=== PATIENT | male | born 1980 | race Caucasian/White ===

== ENCOUNTER 2018-09-11 04:46 | Inpatient (IN) | payer OTHER ==
[2018-09-11] VITALS (8 sets, daily range): BP systolic 107–146; BP diastolic 69–98
[~2018-09-11] VITALS: Ht 180.3 cm; Wt 58.5 kg
[~2018-09-11 04:46] MED LIST: ATIVAN1 MG PO; AUGMENTIN 500-1 EACH PO; COLACE100 MG PO; FENTANYL 1100 MCG/HR TP; FENTANYL PA25 MCG/HR TP; MORPHINE SULFAT15 M1 PO; MSL20MG/ML PO; OXYCODONE HCL30 MG PO; PENTASA500 MG PO; REGLAN 10 MG TA10 MG PO; ROXICODONE15 MG PO; ROXICODONE30 MG PO; TRAMADOL 50 MG50 MG PO; ZOFRAN ODT4 MG PO
[2018-09-11 05:07] LABS: URINE BILIRUBIN NEGATIVE (Negative); URINE BLOOD NEGATIVE (Negative); URINE CLARITY CLEAR; URINE COLOR YELLOW; URINE GLUCOSE-RANDOM* NEGATIVE (Negative); URINE KETONES 1+ (Negative); URINE LEUKOCYTES-REFLEX NEGATIVE (Negative); URINE NITRITE-REFLEX NEGATIVE (Negative); URINE PROTEIN (DIPSTICK) NEGATIVE (Negative); URINE UROBILINOGEN 0.2 E.U./dl (0.2-1.0)
[2018-09-11] MEDS ORDERED: HYOSCYAMINE0.125 M2 PO (05:10)
[2018-09-11] MEDS ORDERED: METHADOSE40 MG PO (05:12)
[2018-09-11 05:32] LABS: HEMATOCRIT 41.4 % (42.0-52.0); HEMOGLOBIN 13.9 gm/dL (14.0-18.0); MCH 27.5 pg (26.0-34.0); MCHC 33.7 g/dL (28.0-37.0); MCV 81.8 fL (80.0-100.0); RBC 5.06 mil/uL (4.50-6.00); RDW 14.3 % (10.5-14.5); WBC 8.8 thou/uL (4.0-11.0)
[2018-09-11 05:40] LABS: CALCIUM 9.3 mg/dL (8.5-10.1); CREATININE 1.3 mg/dL (0.7-1.3); POTASSIUM 3.4 mmol/L (3.5-5.1)
[2018-09-11 05:53] LABS: ALBUMIN 3.4 g/dL (3.4-5.0); TOTAL BILIRUBIN 0.4 mg/dL (<0.1-1.0)
[2018-09-12 03:20] VITALS: BP 128/74
[2018-09-12 06:42] LABS: ABSOLUTE NEUTROPHILS 13.2 thou/uL (1.4-8.2); BASOPHILS 0.1 % (0.0-2.0); HEMATOCRIT 32.8 % (42.0-52.0); LYMPHOCYTES 4.2 % (24.0-44.0); MCH 26.8 pg (26.0-34.0); MCHC 32.4 g/dL (28.0-37.0); MCV 82.6 fL (80.0-100.0); POLYS 89.7 % (36.0-66.0); RBC 3.97 mil/uL (4.50-6.00); RDW 14.5 % (10.5-14.5); WBC 14.7 thou/uL (4.0-11.0)
[2018-09-12 06:44] LABS: HEMOGLOBIN 10.6 gm/dL (14.0-18.0); PLATELET COUNT 279 thou/uL (150-400)
[2018-09-12 06:50] LABS: CALCIUM 8.2 mg/dL (8.5-10.1); POTASSIUM 3.9 mmol/L (3.5-5.1)
[2018-09-12 07:34] VITALS: BP 126/91
[2018-09-12 12:17] VITALS: BP 160/90
[2018-09-12 15:18] VITALS: BP 110/80
[2018-09-12 20:11] VITALS: BP 132/77
[2018-09-13 04:11] VITALS: BP 139/74
[2018-09-13 05:46] LABS: ABSOLUTE NEUTROPHILS 8.4 thou/uL (1.4-8.2); BASOPHILS 0.3 % (0.0-2.0); HEMATOCRIT 30.4 % (42.0-52.0); LYMPHOCYTES 5.5 % (24.0-44.0); MCH 27.3 pg (26.0-34.0); MCV 82.7 fL (80.0-100.0); MONOCYTES 5.5 % (1.0-8.0); PLATELET COUNT 242 thou/uL (150-400); POLYS 88.7 % (36.0-66.0); RBC 3.68 mil/uL (4.50-6.00); RDW 14.8 % (10.5-14.5); WBC 9.5 thou/uL (4.0-11.0)
[2018-09-13 06:02] LABS: CALCIUM 8.6 mg/dL (8.5-10.1); CREATININE 0.9 mg/dL (0.7-1.3); POTASSIUM 3.9 mmol/L (3.5-5.1)
[2018-09-13 11:57] VITALS: BP 115/79
[2018-09-13 15:59] VITALS: BP 113/77
[2018-09-13 19:05] VITALS: BP 110/68
[2018-09-14 00:34] VITALS: BP 117/72
[2018-09-14 04:35] VITALS: BP 104/62
[2018-09-14 05:26] LABS: ABSOLUTE NEUTROPHILS 7.7 thou/uL (1.4-8.2); BASOPHILS 0.1 % (0.0-2.0); EOSINOPHILS 0.1 % (0.0-3.0); HEMATOCRIT 26.6 % (42.0-52.0); HEMOGLOBIN 8.9 gm/dL (14.0-18.0); MCH 27.6 pg (26.0-34.0); MCHC 33.5 g/dL (28.0-37.0); MCV 82.6 fL (80.0-100.0); MONOCYTES 3.1 % (1.0-8.0); PLATELET COUNT 215 thou/uL (150-400); POLYS 94.7 % (36.0-66.0); RBC 3.22 mil/uL (4.50-6.00); RDW 14.5 % (10.5-14.5); WBC 8.1 thou/uL (4.0-11.0)
[2018-09-14 05:36] LABS: CALCIUM 8.3 mg/dL (8.5-10.1); POTASSIUM 3.7 mmol/L (3.5-5.1)
[2018-09-14 07:11] VITALS: BP 104/58
[2018-09-14 15:27] VITALS: BP 111/77
[2018-09-14 20:12] VITALS: BP 106/69
[2018-09-15 04:08] VITALS: BP 103/58
[2018-09-15] MEDS ORDERED: METRONIDAZOLE500 M4 PO (10:08)
[2018-09-15] MEDS ORDERED: HYDROCODON-ACE1 EAC7 PO (10:08)
[2018-09-15 10:23] VITALS: BP 103/58
--- NOTE | 2018-09-16 14:06 | PATH ---
[facility] [address] [place] [address] PATHOLOGY RPT PROCEDURE Name: GINOSMITA Room #: 459-P DIS IN M.R.#: [id number] Admission: 09/11/18 Date of : 80 Discharge: 09/15/18 Report #: [id number] Path Case #: [id number] LCA Accession Number: [id number] . 01 Material submitted: . ILEOCOLONIC RESECTION . 01 Clinical history: . Bowel obstruction . 02 Diagnosis: Small bowel and large intestine, ileocolonic resection: - Surface ulceration along with moderate acute inflammation and transmural lymphoid aggregates, compatible with Crohn's disease. - Fibrosis and adhesions along with marked congestion of the serosal surface. - Multiple anastomotic sites identified, status post resection. - Negative for dysplasia or malignancy. - Margins of resection viable and unremarkable. - 11.2 cm of omentum showing reactive changes. - 19 reactive lymph nodes (0/19) (IUV:jovanna; 09/15/2018) MBR/09/15/2018 . 02 Electronically signed: . Melissa Urena MD, Pathologist NPI- [id number] . 01 Gross description: . The specimen is received in formalin, labeled "Smita Christian, ileocolonic resection". Received is a serpiginous segment of small bowel measuring 82.4 cm in length and ranges in diameter from 2.4 to 5.5 cm, which is anastomosed to a segment of colon measuring 4.1 cm in length by 3.3 cm in diameter. Both margins are stapled closed. 2.5 cm from one margin, there is an area of dusky brown-black discoloration with sutures present measuring 4.7 cm in length by 1.4 cm in diameter. The surrounding serosal surface is inked black. The remainder of the serosa is pink-dueñas to dusky pink-green appearance. The attached mesenteric fat measures up to 3.3 cm in thickness. The attached pericolic fat measures 1.0 cm in thickness. The specimen is along the antimesenteric line to reveal dusky jonas-brown to pink-red mucosa within the small bowel. 50.1 cm from the proximal margin, the mucosa is pink-red and cobblestone in appearance. Within this area, there is an anastomotic line present. The mucosa distal to this anastomosis is pink-dueñas and slightly edematous in appearance with the cobblestone effect extending 4.4 cm distal to this anastomotic line. 4.1 cm from the distal margin, there is a second anastomotic line present. The colonic mucosa is light dueñas to pink-dueñas in appearance with normal [address] [address] PATHOLOGY RPT PROCEDURE Name: SMITA CHRISTIAN Room #: 459-P [facility] IN M.R.#: [id number] Admission: 09/11/18 Date of : 80 Discharge: 09/15/18 Report #: [id number] Path Case #: [id number] architectural folds. Sectioning through the attached mesenteric and pericolic fat reveals 17 readily identifiable lymph nodes ranging in size from 0.5 to 1.4 cm in maximum dimensions. . Also received within the specimen container is a segment of light dueñas mucosa with attached pale dueñas serosa, which has a suture present, measuring 3.7 x 1.5 x 0.6 cm, as well as a separately submitted segment of omentum measuring 11.2 x 3.8 x 1.5 cm in greatest dimensions. The specimen is submitted representatively as follows: . A1 proximal margin A2 distal margin A3 admitting representative sections from area of discoloration near proximal margin A4 admitting representative sections of small bowel mucosa proximal to anastomotic line #1 A5 admitting representative sections of anastomotic line #1 A6-A7 admitting representative sections of cobblestone-appearing mucosa surrounding the anastomotic line #1 A8 admitting representative sections of small bowel mucosa distal to anastomotic line #1 A9-A10 admitting representative sections of anastomotic line #2 A11 colonic mucosa A12 mesenteric margin A13-A16 intact lymph nodes A17-A18 one bisected lymph node in each cassette A19 admitting representative section of separately submitted segment of mucosa A20 admitting representative sections of omentum. (CAA; 09/12/2018) QAC/QAC . 02 Pathologist provided ICD-10: K50.90, K63.9 . 02 CPT . 178800, 062530 Specimen Comment: A courtesy copy of this report has been sent to Specimen Comment: [phone], , . Specimen Comment: Report sent to ,DR OLVERA / DR SOTO Specimen Comment: A duplicate report has been generated due to demographic updates. Performed at: [address] [place] [address] [place] [address] [address], [place] [id number] MD aJy Orlando MD Phone: [phone] Performed at: [address] [facility] [address], [place], [place] [id number] [facility] [address] [place] [address] PATHOLOGY RPT PROCEDURE Name: SMITA CHRISTIAN Room #: 459-P [facility] IN M.R.#: [id number] Admission: 09/11/18 Date of : 80 Discharge: 09/15/18 Report #: [id number] Path Case #: [id number] MD Melissa Urena MD Phone: [phone]
== END 2018-09-15 14:46 | disposition home or self-care (01) | DRG 329 ==
LOC: ER 04:46 → 4W 06:48 → EROBS 06:48 → 4W 09:35
PROVIDERS: Student in an Organized Health Care Education/Training Program; Surgery; ADMIT Hospitalist
DX: K56.609 Unspecified intestinal obstruction, unspecified as to partial versus complete obstruction (principal); E43 Unspecified severe protein-calorie malnutrition; G93.5 Compression of brain; K50.90 Crohn's disease, unspecified, without complications; F11.20 Opioid dependence, uncomplicated; Z68.1 Body mass index [BMI] 19.9 or less, adult; G89.4 Chronic pain syndrome; F32.9 Major depressive disorder, single episode, unspecified; F17.210 Nicotine dependence, cigarettes, uncomplicated; E87.6 Hypokalemia; Z91.041 Radiographic dye allergy status; Z91.19 Patient's noncompliance with other medical treatment and regimen
CPT/HCPCS: 10040; 50010; 50093; 50101; 50386; 50455; 50953; 51412; 51435; 51708; 51712; 56527; 56530; 56771; 57092; 62110; 62900; 70005

== ENCOUNTER 2018-09-21 18:47 | Inpatient (IN) | payer OTHER ==
[~2018-09-21] VITALS: Ht 180.3 cm; Wt 72.2 kg
--- NOTE | ~2018-09-21 | HC ---
[facility] [address] [place] [address] CONSULTATION Name: GINOSMITA CLEVELAND Room #: 200-I ADM IN .R.#: [id number] Admission: 09/21/18 ������������������ Attend Phys: Jay Cisse MD Discharge: ������������������ Date of : 80 Report #: [id number] THIS REPORT FOR: //name// CC: Jay Cisse [facility] physician/PCP REASON FOR CONSULTATION: Acute kidney injury. REASON FOR PRESENTATION: The patient was admitted on the 09/21/2018 with abdominal pain. HISTORY OF PRESENT ILLNESS: This is a 38-year-old with extensive abdominal history including Crohn's disease. He presented on 09/21/2018 with abdominal pain. He has history of untreated Crohn's disease. He is status post exploratory laparotomy with ileocolonic resection due to stricture causing high-grade small bowel obstructions on 08/14/2018. He had worsening of his abdominal pain and presented for further evaluation. CT on arrival revealed large amount of free air and fluid throughout the abdomen. Hence, the patient was taken to the OR on 09/22/2018 and he was found to have an ileocolonic anastomosis perforation due to ischemia. He had resection of the anastomotic area with lysis of adhesion, abdominal washout, end-ileostomy and STACY drain x 2. He has required numerous antibiotics and was recently on Keflex, switched to Zyvox. He had normal kidney function to start with all through during his hospital stay, other than a high creatinine of 1.6 on arrival; however, this improved down to ____. The patient is chronically malnourished. The patient continued to have normal kidney function up until 10/04/2018. From 10/04/2018 up until the 10/08/2018, the patient did not have any labs. On 10/08/2017, labs revealed significant worsening of his kidney function with a creatinine going up to 2.9. This was complicated by hyperkalemia with a potassium of 5.9 while the patient was on TPN. UA was completely unremarkable. He did have couple of low blood pressure readings. He was also on Keflex. No other nephrotoxins, specifically no nonsteroidal anti-inflammatory medications. No contrast studies in the last 24 hours; however, he did have contrasted CT on the 09/30/2018. On the 10/01/2018, he had yet another complication with a large gas containing fluid collection within the right upper quadrant, suspected of representing an anastomotic leak. He was taken to the CT ramírez and had a CT-guided placement of a 12-Faroese percutaneous drainage into that large gas containing anterior abdominal wall abscess. The patient had been making appropriate amount of urine. PAST MEDICAL HISTORY: 1. Crohn's disease. 2. Anastomotic breakdown due to ischemia. 3. Abdominal wall abscess. 4. Post STACY drain. 5. Ileostomy 6. Acute kidney injury. [address] [address] CONSULTATION Name: SMITA CHRISTIAN Room #: 200-I ADM IN M.R.#: [id number] Admission: 09/21/18 ������������������ Attend Phys: Jay Cisse MD Discharge: ������������������ Date of : 80 Report #: [id number] 7. Hyperkalemia. 8. Abdominal infection with Klebsiella, MRSA and enterococcus. 9. Status post bowel anastomosis dehiscence. 10. Status post colectomy and end ileostomy. 11. Peritonitis. 12. Small left pneumothorax. 13. Malnutrition. PAST SURGICAL HISTORY: As mentioned above. FAMILY HISTORY: No known chronic kidney disease. ALLERGIES: IODINE. ADDITIONAL PAST MEDICAL HISTORY: 1. 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 2. Appendectomy. 3. Lysis of adhesions. 4. Chronic pain. MEDICATIONS: 1. Methadone. 2. Hydrocodone. REVIEW OF SYSTEMS: GENERAL: Significant for weakness. CARDIOVASCULAR: No chest pain. PULMONARY: No cough or hemoptysis. ABDOMINAL AND GASTROINTESTINAL: As per the history of present illness. GENITOURINARY: No frequency, no urgency. PHYSICAL EXAMINATION: VITAL SIGNS: Blood pressure is 113/66, pulse rate is 89, temperature 36.6. HEAD AND NECK: No jugular venous distention. Emaciated. CHEST: Decreased air entry bilaterally. CARDIOVASCULAR: No rub. ABDOMEN: Soft, nontender with multiple STACY drains in the lower aspect, right upper quadrant drain, end ileostomy. LOWER EXTREMITIES: No edema. LABORATORY DATA: Reviewed. Sodium is 134, potassium is 5.7, BUN is 39, creatinine is down to 2.8, phosphorus is 5.7. ASSESSMENT, IMPRESSION AND PLAN: 1. Acute kidney injury. [address] [address] CONSULTATION Name: SMITA CHRISTIAN Room #: 200-I ADM IN ..#: [id number] Admission: 09/21/18 ������������������ Attend Phys: Jay Cisse MD Discharge: ������������������ Date of : 80 Report #: [id number] 2. Hyperkalemia. 3. Very complicated abdominal surgeries, see above. 4. Status post end ileostomy, lysis of adhesion, peritonitis, abdominal wall abscess drainage. 5. The source of the patient's acute kidney injury is not clear to me. Potential differential diagnosis includes dehydration, acute interstitial nephritis. I started him on IV fluid and this has resulted in significant improvement in his urine output. His potassium is marginal and I have discontinued all the potassium supplement from his TPN. His Keflex was discontinued, which seems to be appropriate. As for now, we will continue with the IV fluid and combination of his TPN with no potassium supplement. 6. Continue with the antibiotic. 7. Continue to avoid nephrotoxins and hypotension. 8. Watch electrolytes and treat any abnormal electrolyte values. 9. Continue other medical and surgical management per hospitalist and surgery team. 10. We will continue to follow along. ��������������������������������������������� ���������������������������������������� By: ��������������������������������������������� 0818 1823 Gloria Burdick MD /diana
[~2018-09-21 18:47] MED LIST changes: +HYDROCODON-ACE1 EAC7 PO; +HYOSCYAMINE0.125 M2 PO; +METHADOSE40 MG PO; +METRONIDAZOLE500 M4 PO
[2018-09-21 19:03] VITALS: BP 123/82
--- NOTE | 2018-09-21 19:15 | NUR ---
PATIENT C/O PAIN LEFT SHOULDER AREA. PHYSICIAN NOTIFIED.
--- NOTE | 2018-09-21 19:40 | NUR ---
SWELLING NOTED TO BILATERAL LOWER EXTREMITIES - 2+
[2018-09-21 19:41] LABS: ABSOLUTE NEUTROPHILS 6.5 thou/uL (1.4-8.2); BASOPHILS 0.1 % (0.0-2.0); HEMATOCRIT 27.6 % (42.0-52.0); HEMOGLOBIN 9.8 gm/dL (14.0-18.0); LYMPHOCYTES 3.3 % (24.0-44.0); MCH 27.7 pg (26.0-34.0); MCHC 35.3 g/dL (28.0-37.0); MCV 78.4 fL (80.0-100.0); MONOCYTES 5.4 % (1.0-8.0); PLATELET COUNT 603 thou/uL (150-400); POLYS 91.2 % (36.0-66.0); RBC 3.52 mil/uL (4.50-6.00); RDW 14.3 % (10.5-14.5); WBC 7.2 thou/uL (4.0-11.0)
[2018-09-21 19:48] LABS: CALCIUM 8.3 mg/dL (8.5-10.1); CREATININE 1.6 mg/dL (0.7-1.3); POTASSIUM 5.3 mmol/L (3.5-5.1)
[2018-09-21 19:54] LABS: ALBUMIN 1.8 g/dL (3.4-5.0); TOTAL BILIRUBIN 0.5 mg/dL (<0.1-1.0)
--- NOTE | 2018-09-21 20:15 | NUR ---
PATIENT TO CT SCAN
--- NOTE | 2018-09-21 21:49 | NUR ---
ER SPOKE WITH DR GARRETT AT 2746
--- NOTE | 2018-09-21 22:30 | NUR ---
SURGEON AT BEDSIDE TO DISCUSS EMERGENCY SURGERY
[2018-09-21 22:52] VITALS: BP 114/73
[2018-09-22] VITALS (28 sets, daily range): BP systolic 114–149; BP diastolic 69–87
[2018-09-22 02:11] LABS: URINE BILIRUBIN NEGATIVE (Negative); URINE BLOOD NEGATIVE (Negative); URINE CLARITY CLEAR; URINE COLOR YELLOW; URINE GLUCOSE-RANDOM* NEGATIVE (Negative); URINE KETONES NEGATIVE (Negative); URINE LEUKOCYTES-REFLEX NEGATIVE (Negative); URINE NITRITE-REFLEX NEGATIVE (Negative); URINE PROTEIN (DIPSTICK) NEGATIVE (Negative); URINE UROBILINOGEN 0.2 E.U./dl (0.2-1.0)
[2018-09-22 02:20] LABS: AMP/METHAMP Negative (Negative); BARBITURATES Negative (Negative); BENZODIAZEPINES Negative (Negative); COCAINE Negative (Negative); METHADONE POSITIVE (Negative); OPIATES POSITIVE (Negative); PCP Negative (Negative)
[2018-09-22 06:53] LABS: HEMATOCRIT 30.7 % (42.0-52.0); HEMOGLOBIN 10.4 gm/dL (14.0-18.0); MCH 27.1 pg (26.0-34.0); MCHC 33.9 g/dL (28.0-37.0); MCV 79.9 fL (80.0-100.0); RBC 3.84 mil/uL (4.50-6.00); RDW 14.4 % (10.5-14.5)
[2018-09-22 07:21] LABS: CREATININE 1.2 mg/dL (0.7-1.3); MAGNESIUM 2.2 mg/dL (1.8-2.4); POTASSIUM 5.4 mmol/L (3.5-5.1)
--- NOTE | 2018-09-22 07:42 | NUR ---
RECIEVED PT FROM PACU. PT AWAKE,C/O OF ABD PAIN, AND HAS CHRONIC PAIN THROUGHOUT BODY. UTILIZING INDUSTRIAL EDUCATION INSTRUCTOR ORDERED. PT SLEEPING-AWAKENS EASILY. VSS. ABD DRSG D/I. ILEOSTOMY WITH SMALL AMT OF SEROSANQ TRUDI. AND STACY COMPRESSED AND DRAINING-SEROSANQ. WELL. UO ADEQUATE. CONT TO MONITOR
--- NOTE | 2018-09-22 08:26 | EKG ---
[address] [place] [address] ELECTROCARDIOGRAM REPORT Name: GINOSMITA MCCARTHYITH Room #: 239-P ADM IN M.R.#: [id number] ������������������ Admission: 09/21/18 ������������������ Attend Phys: Jay Cisse MD Discharge: ������������������ Date of : 80 Report #: [id number] ����������������������������������������������������������������� [id number] THIS REPORT FOR: //name// [facility] ED Test Date: 2018-09-21 Test Time: 20:58:54 Pat Name: SMITA CHRISTIAN Department: Room: 239 Gender: M Ecommerce Merchandising Manager: mee : 1980 Requested By: Reinaldo Murrell Order Number: [id number] MD: Everett De La Paz Measurements Intervals [place] Rate: 102 P: 63 HI: 136 QRS: 36 QRSD: 88 T: 2 QT: 294 QTc: 383 Interpretive Statements Sinus tachycardia Nonspecific ST and T wave abnormality Compared to ECG 07/19/2015 17:00:22 nonspecific change in the ST and T-wave segments QT interval shortened Electronically Signed On 09-22-2018 8:26:13 SMALL BUSINESS SALES REPRESENTATIVE by Everett De La Paz [email or web address] ��������������������������������������������� <ELECTRONICALLY SIGNED> ���������������������������������������� By: Everett De La Paz MD, [facility] ��������������������������������������������� 09/22/18825 57 57 Everett De La Paz MD, [facility] /EPI
--- NOTE | 2018-09-22 09:46 | NUR ---
Nutrition: REC start TPN. pt severe malnourished. REC slow advancement in rate due to high refeeding syndrome risk. Standard TPN to reach goal rate of 75 mL/hr will meet needs.
--- NOTE | 2018-09-22 15:31 | NUR ---
WOUND CONSULT: PT. WAS SEEN TODAY BY DR. BAR AND MYSELF. PT. WOUND TO HIS MIDLINE IS HEALTHY IN APPERANCE AT THIS TIME. RECOMMENDATIONS: MAGGIE'S DAILY PT. AND STAFF NURSE WERE INSTRUCTED ON PLAN OF CARE.
--- NOTE | 2018-09-22 16:25 | NUR ---
CONSULTED TO PLACE A PICC FOR A PATIENT IN ICU NEEDING TPN. ORDER AND CONSENT NOTED. THE PROCEDURE WELL BENIFITS AND RISKS FOR THE PROCEDURE DISCUSSED AND THE PATIENT REQUESTED ATIVAN PRE PROCEDURE. THE RN OBTAINED AN ORDER FROM THE MD AND ATIVAN GIVEN PER ORDER. A #5F TRIPLE LUMEN POWER PICC WAS PLACED ON THE LEFT ARM PER HOSPITAL POLICY AFTER THE RIGHT ARM WAS ATTEMTED AND UNSUCCESSFUL. PRE- PROCEDURE TIMEOUT WAS COMPLETED PRIOR TO PLACEMENT. THE LINE WAS TRIMMED TO 50CM AND ADVANCED WITHOUT DIFFICULTY. A STAT CHEST XRAY WAS ORDERED FOR TIP LOCATION
--- NOTE | 2018-09-22 16:49 | NUR ---
ASSESSMENT-PT LIVES AT HOME WITH HIS MOM AND SISTER. PT JUST HAD SURGERY RECENTLY AND WAS DISCAHRGED HOME WITH MOM AND SISTER. PRIOR PT WAS NOT USING ANY DME AND HAD NO HH. MOM SAYS PT HAS HAD HH SERVICES IN THE PAST BUT MOM DOES NOT KNOW THE NAME OF THE AGENCY. THERAPIES WILL NEED TO BE ORDERED ONCE STABLE ENOUGH TO PARTICIPATE. WILL AWAIT REC. FOLLOWING TO ASSIST WITH DC PLANNING.
--- NOTE | 2018-09-22 19:32 | NUR ---
PATIENT ALERT AND ORIENTED X4, DROWSY AT TIMES. SINUS TACHYCARDIA ON GLOBAL UPSTREAM MARKETING MANAGER. ON ROOM AIR. RIGHT NARE NG TUBE TO LOW INTERMITTENT SUCTION. MCLEOD PATIENT AND DRAINING. RIGHT ILLEOSTOMY INTACT. MIDLINE DRESSING CHANGED PER WOUND CARE ORDERS. BLOOD SUGAR MONITORED. MORPHINE VOLLEYBALL COACH PARTIALLY CONTROLLING PAIN. PATIENT AND FAMILY UPDATED ON THE PLAN OF CARE. NO SIGNS OF ACUTE DISTRESS NOTED AT THIS TIME. WILL CONTINUE TO MONITOR.
[2018-09-23] VITALS (16 sets, daily range): BP systolic 112–146; BP diastolic 64–86
--- NOTE | 2018-09-23 04:45 | NUR ---
NO ACUTE CHANGES OVER THE NIGHT.PT CONTROLLING PAIN WITH PUBLIC TRANSPORTATION INSPECTOR, HAS SLEPT MOST OF THE NIGHT. VITALS WNL, TPN STARTED LAST NIGHT @30ML/HR. ADEQUATE URINE OUTPUT, NO DRAINAGE FROM RIGHT STACY, LEFT STACY DRAIN 80ML OUT. NG LO LIS, DRAINING SMALL AMOUNTS. PT WITH SEVERE GENERALISED WEAKNESS , UNABLE TO ASSIST WITH TURNS.
[2018-09-23 04:51] LABS: MAGNESIUM 2.4 mg/dL (1.8-2.4); PHOSPHORUS 2.7 mg/dL (2.5-4.9)
[2018-09-23 04:53] LABS: CALCIUM 7.9 mg/dL (8.5-10.1); CREATININE 0.9 mg/dL (0.7-1.3); POTASSIUM 3.9 mmol/L (3.5-5.1); TOTAL BILIRUBIN 0.4 mg/dL (<0.1-1.0)
[2018-09-23 05:07] LABS: ABSOLUTE NEUTROPHILS 4.3 thou/uL (1.4-8.2); EOSINOPHILS 0.1 % (0.0-3.0); HEMATOCRIT 23.2 % (42.0-52.0); LYMPHOCYTES 5.7 % (24.0-44.0); MCH 27.1 pg (26.0-34.0); MCV 79.8 fL (80.0-100.0); MONOCYTES 11.4 % (1.0-8.0); POLYS 82.8 % (36.0-66.0); RBC 2.91 mil/uL (4.50-6.00); RDW 14.6 % (10.5-14.5); WBC 5.1 thou/uL (4.0-11.0)
[2018-09-23 05:08] LABS: HEMOGLOBIN 7.9 gm/dL (14.0-18.0); PLATELET COUNT 543 thou/uL (150-400)
[2018-09-23 05:47] LABS: ALBUMIN 1.3 g/dL (3.4-5.0)
--- NOTE | 2018-09-23 11:41 | NUR ---
ASSESSMENTS DOCUMENTED. VSS. PT HAS CCT TX ORDERS. A/OX4. CHRONIC PAIN - TABULATING SUPERVISOR PUMP INFUSING. PRN ATIVAN GIVEN FOR ANXIETY. PT VERY SENSITIVE TO MOVEMENT, DOES NOT LIKE TO BE ROLLED OR REPOSITIONED MUCH. NG TO MONIQUE. MCLEOD PATENT. IV FLUIDS AND TPN INFUSING. SEEN BY SURGEON, NO CHANGES TO PLAN OF CARE FOR NOW. REMAINS NPO. REPORT GIVEN TO SUSHMA HANCOCK.
--- NOTE | 2018-09-23 11:44 | HC ---
[facility] [address] [place] [place] [address] CONSULTATION Name: SMITA CHRISTIAN Room #: 239-P [facility] IN M.R.#: [id number] Admission: 09/21/18 ������������������ Attend Phys: Jay Cisse MD Discharge: ������������������ Date of : 80 Report #: [id number] THIS REPORT FOR: //name// CC: Jay Cisse [facility] physician/PCP DATE OF SERVICE: 09/22/2018 CHIEF COMPLAINT: Surgical wound abdominal wall. HISTORY OF PRESENT ILLNESS: This is a 38-year-old male patient with a history of Crohn's disease that has been mostly untreated. He has had this diagnosis since around 2005. He is status post recent exploratory laparotomy with ileocolonic resection due to a stricture causing a high-grade small-bowel obstruction at a previous anastomosis. The patient has had increasing abdominal discomfort and was admitted. He was noted to have abdominal peritonitis with free air and fluid noted on CT. He underwent exploratory laparotomy with ileocolonic anastomosis resection, lysis of adhesions, abdominal washout, end ileostomy and STACY drain placement x 2. He has an open surgical abdominal incision line. I have been asked to see him with regard to wound care. ALLERGIES: THE PATIENT'S ALLERGIES ARE TO IODINE. MEDICATIONS: His current medications include enoxaparin, TPN, magnesium sulfate, potassium chloride, lorazepam, pantoprazole, diphenhydramine, metoclopramide, morphine, Zosyn and fentanyl. FAMILY HISTORY: Negative for known autoimmune disease. SOCIAL HISTORY: The patient smokes half pack of cigarettes daily. Denies alcohol use. Denies drug use. PAST MEDICAL HISTORY: The patient has a Chiari malformation, abdominal surgery for abscesses in 2002, small bowel resection in 2005 and chronic pain with narcotic use. REVIEW OF SYSTEMS: CONSTITUTIONAL: The patient denies fever or chills. He has had significant weight loss over the last several weeks. ENT: The patient denies earache, nasal drainage or sore throat. Has an NG tube. EYES: The patient denies visual changes, redness or drainage. CARDIOVASCULAR: The patient denies chest pain, palpitation or diaphoresis. PULMONARY: The patient denies cough or shortness of breath. GASTROINTESTINAL: The patient does complain of generalized abdominal discomfort with surgical wound. [facility] [address] [place] [address] CONSULTATION Name: SMITA CHRISTIAN Room #: 239-P [facility] IN ..#: [id number] Admission: 09/21/18 ������������������ Attend Phys: Jay Cisse MD Discharge: ������������������ Date of : 80 Report #: [id number] ORTHOPEDIC: The patient denies pain or swelling in the extremities. Other systems in a 14-point review of systems are negative. PHYSICAL EXAMINATION: VITAL SIGNS: At this time include temperature 98.4, pulse 105, respiratory rate 13 and blood pressure 120/69. GENERAL: This is a chronically ill-appearing male patient, who appears cachectic and in moderate discomfort. HEENT: Head normocephalic. Nose and throat are clear. NECK: Supple. LUNGS: Clear. HEART: Regular. ABDOMEN: Soft. Bowel sounds are present. He is emaciated. His abdomen is thin with very little subcutaneous fat. There is a longitudinal surgical incision. The fascia is intact. The superficial layers are open. It is relatively clean with granulation tissue. STACY drains are noted, without evidence of infection. Ileostomy appears to be pink with liquid output. EXTREMITIES: Without clubbing or cyanosis. NEUROLOGIC: The patient is alert, oriented and appropriate. LABORATORY DATA: Includes white blood cell count of 11,000, hemoglobin of 10.4, hematocrit of 30.7 and platelet count is 733,000. Sodium 128, potassium 5.4, chloride 94, CO2 of 25, BUN 36, creatinine 1.2, glucose of 71 and calcium is 8.0. Magnesium is 2.2. Albumin is markedly low at 1.3. Total protein is 4.0. CLINICAL IMPRESSION: 1. Surgical wound in the abdominal wall. 2. Untreated Crohn's disease with recent ileocolonic resection and subsequent peritonitis. 3. Severe protein-calorie malnutrition. RECOMMENDATIONS: At this point in time, we will use the Dakin's moist gauze dressing to the abdominal wall. We will consider a wound VAC to the abdominal incision line. He will need aggressive nutritional support. We will need additional suppression of his Crohn's disease once he is appropriately recovered from his surgical interventions. All findings have been discussed with the patient and family at the bedside. I appreciate being asked to see him in consultation. ��������������������������������������������� <ELECTRONICALLY SIGNED> ���������������������������������������� By: Juan R Turner MD ��������������������������������������������� 09/23/18 1144 [id number] Juan R Turner MD /nt
[2018-09-23 11:45] LABS: CALCIUM 7.6 mg/dL (8.5-10.1); CREATININE 0.7 mg/dL (0.7-1.3); MAGNESIUM 2.1 mg/dL (1.8-2.4); PHOSPHORUS 2.1 mg/dL (2.5-4.9); POTASSIUM 3.7 mmol/L (3.5-5.1)
--- NOTE | 2018-09-23 13:15 | NUR ---
PT RECEIVED FROM ICU TO ROOM 200..ORIENTED TO ROOM..
--- NOTE | 2018-09-23 13:28 | NUR ---
WOUND FOLLOW UP: PT. WAS SEEN TODAY BY DR. BAR AND MYSELF. PT. SURGICAL INCSION IS CLINCIALLY BETTER TODAY THAN YESTERDAY. RECOMMENDATIONS: CONTINUE WITH CURRENT PLAN OF CARE. PT. AND STAFF NURSE WERE INSTRUCTED ON PLAN OF CARE.
--- NOTE | 2018-09-23 13:29 | NUR ---
OSTOMY CONSULT: PT. SURGICAL OSTOMY APPLIANCE IS STILL INTACK AND WORKING WELL. STOMA IS ABLE TO BE VISULIZED. IT IS STILL SWOLLEN. COLOR IS BEEFY RED. OUT PUT IS SILL BLOOD MIXED AT THIS TIME. WILL CHANGE POUCH AND WAFFER LATER THIS WEEK.
--- NOTE | 2018-09-23 18:30 | NUR ---
PT HAS BEEN VERY GROGGY..PATIENTS MOTHER REQUESTED ATIVAN BE DECREASED SO HE CAN PARTICIPATE WITH PT/OT...VSS..PATIENT IS VERY SENSITIVE TO TOUCH, HE HOLLERS OUT IF ANY PART OF SKIN IS TOUCHED LIGHTLY...DENIES NAUSEA..NG TO LIS WITH MARCIAL BRUSH...REFUSED TO WORK WITH NATALIE PT...NOT PROGRESSING TOWARDS D/C GOALS YET...ATTEMPTED IS AND HE REFUSED TO HOLD IS..HE COULD NOT OBTAIN ANY READING ON IS. ASKED RT TO WORK WITH PATIENT LATER IN [place]...
[2018-09-24 00:40] VITALS: BP 140/76
--- NOTE | 2018-09-24 03:05 | NUR ---
ASSUMED CARE OF PATIENT AT 1900. VSS, AFEBRILE. CAPNEA MONITOR ORDERED TO MONITOR MORE CLOSELY. PATIENT WILL WAKE UP AND ANSWER QUESTIONS, BUT IS SLOW TO DO SO AT TIMES. EDUCATION GIVEN THAT IF HE IS TOO SEDATED, PAIN PUMP WILL HAVE TO BE ADJUSTED AGAIN. USING SIGNIFICANTLY LESS MORPHINE, PUSHING THE BUTTON LESS OFTEN WELL. STACY DRAINS FUNCTIONING WELL. PROGRESSING SLOWLY TOWARDS POC GOALS.
[2018-09-24 04:15] VITALS: BP 133/79
[2018-09-24 05:25] LABS: ABSOLUTE NEUTROPHILS 5.1 thou/uL (1.4-8.2); EOSINOPHILS 0.5 % (0.0-3.0); HEMOGLOBIN 7.4 gm/dL (14.0-18.0); LYMPHOCYTES 5.6 % (24.0-44.0); MCH 26.9 pg (26.0-34.0); MCHC 33.6 g/dL (28.0-37.0); MCV 80.2 fL (80.0-100.0); MONOCYTES 11.8 % (1.0-8.0); PLATELET COUNT 518 thou/uL (150-400); POLYS 82.1 % (36.0-66.0); RBC 2.74 mil/uL (4.50-6.00); RDW 14.5 % (10.5-14.5); WBC 6.3 thou/uL (4.0-11.0)
[2018-09-24 05:41] LABS: CALCIUM 7.4 mg/dL (8.5-10.1); CREATININE 0.5 mg/dL (0.7-1.3); MAGNESIUM 1.8 mg/dL (1.8-2.4); PHOSPHORUS 2.1 mg/dL (2.5-4.9); POTASSIUM 3.4 mmol/L (3.5-5.1)
[2018-09-24 07:43] VITALS: BP 172/77
[2018-09-24 09:35] VITALS: BP 123/67
[2018-09-24 10:02] LABS: MAGNESIUM 2.2 mg/dL (1.8-2.4); POTASSIUM 3.6 mmol/L (3.5-5.1)
[2018-09-24 11:45] VITALS: BP 127/63
--- NOTE | 2018-09-24 17:51 | NUR ---
ASSESSMENT DOCUMENTED. PT VERY DROWSY AT THE BEGINING OF THE SHIFT. DIRECTOR CORPORATE PUMP D/C. VSS. RECEIVED PRN PAIN MED AND ANXIETY MED WITH PARTIAL RELIEF. UP IN THE CHAIR THIS SHIFT. MCLEOD D/C. VOIDS OK. DRESSING CHANGE DONE ON ABD INCISION. TPN INFUSING @ 30 ML/HR. CHECKED FREQUENTLY AND NEEDS MET. WILL CONTINUE TO MONITOR.
[2018-09-24 20:07] VITALS: BP 118/64
[2018-09-25] VITALS (7 sets, daily range): BP systolic 106–144; BP diastolic 56–75
[2018-09-25 06:14] LABS: HEMATOCRIT 21.1 % (42.0-52.0); HEMOGLOBIN 7.6 gm/dL (14.0-18.0); MCH 28.7 pg (26.0-34.0); MCHC 35.9 g/dL (28.0-37.0); PLATELET COUNT 543 thou/uL (150-400); RBC 2.64 mil/uL (4.50-6.00); RDW 14.3 % (10.5-14.5); WBC 5.2 thou/uL (4.0-11.0)
[2018-09-25 06:19] LABS: CALCIUM 7.2 mg/dL (8.5-10.1); CREATININE 0.5 mg/dL (0.7-1.3); MAGNESIUM 1.8 mg/dL (1.8-2.4); PHOSPHORUS 2.2 mg/dL (2.5-4.9); POTASSIUM 3.2 mmol/L (3.5-5.1)
[2018-09-25 06:38] LABS: ABSOLUTE NEUTROPHILS 4.4 thou/uL (1.4-8.2)
[2018-09-25 06:40] LABS: POLYCHROMASIA 1+
--- NOTE | 2018-09-25 07:07 | NUR ---
ASSESSMENT DOCUMENTED.PT RESTING AT THIS TIME IN NO ACUTE DISTRESS.MEDICATED WITH PAIN MEDS THROUGHOUT THE NOC Q4H D/T ABD INCISIONS PAIN W/PARTIAL RELIEF.STACY DRAINS X2 IN PLACE,WITH SEROSANG DRAINAGE,SEE I&O FOR TOTAL OUTPUTS.NG TUBE TO LIS,W/BILIOUS DRAINAGE,ILEOSTOMY BAG IN PLACE,MINIMAL OUTPUT NOTED.TPN RUNNING AT 40CC/HR.IVF FLUIDS RUNNING AT 125CC/HR.DRESSING INTACT TO MID ABD INCISIONS.ABT INFUSED PER ORDERS.POC IS TO CONT WITH CURRENT TX.WILL CONT TO MONITOR.
--- NOTE | 2018-09-25 12:07 | PATH ---
[facility] [address] [place] [address] PATHOLOGY RPT PROCEDURE Name: GINOSMITA MEGHA Room #: 200-I ADM IN M.R.#: [id number] ������������������ Admission: 09/21/18 ������������������ Date of : 80 Discharge: Report #: [id number] Path Case #: [id number] LCA Accession Number: [id number] . 01 Material submitted: . ILEOCOLIC RESECTION . 01 Clinical history: . Intra-abdominal free air, hyponatremia, hypokalemia . 02 Diagnosis: Small bowel and large intestinal mucosa, ileocolic resection: - Surface ulceration along with perforation, history of Crohn's disease. - Extensive serositis along with reparative changes including foreign body-type giant cell reaction throughout the specimen. - Margins showing viable mucosa. . (IUV:mml; 09/23/2018) QLM/09/23/2018 . 02 Comment: Synaptophysin, Chromogranin, and CD68 immunohistochemical stains are performed on block A4. CD68 is reactive within the macrophages consistent with the diagnosis rendered. The non-reactive immunohistochemical stains, synaptophysin and chromogranin argue against a neoplastic process. . (IUV:mml; 09/23/2018) . 02 Electronically signed: . Melissa Urena MD, Pathologist NPI- [id number] . 01 Gross description: . The specimen is received in formalin, labeled "Smita Betancourt, ileocolic resection". Received is an unoriented segment of small bowel measuring 7.5 cm in length by 3.2 cm in diameter. Both margins are stapled closed. The serosal surface is dusky pink-jonas in appearance with overlying exudate. The attached mesenteric fat measures 0.9 cm in thickness. Immediately adjacent to one margin, there is a large circular defect, several yahaira embedded on the periphery of the defect, measuring 2.8 x 2.4 cm. The specimen is opened along the antimesenteric line to reveal pink-dueñas mucosa with minimal architectural folds. No distinct nodules or lesions are noted grossly. The specimen is submitted representatively as follows: . A1 margin closest to defect A2 opposite margin [address] [address] PATHOLOGY RPT PROCEDURE Name: GINOSMITA Room #: 200-I ADM IN M.R.#: [id number] ������������������ Admission: 09/21/18 ������������������ Date of : 80 Discharge: Report #: [id number] Path Case #: [id number] A3-A4 risk control field representative sections through circular defect A5 uninvolved mucosa. (CAA; 09/22/2018) QAC/QAC . 02 Pathologist provided ICD-10: K63.1, K63.3, K65.8 . 02 CPT . 186980, [id number], [id number] Specimen Comment: A courtesy copy of this report has been sent to Specimen Comment: [phone], , . Specimen Comment: Report sent to ,DR BAUER / DR GARRETT Specimen Comment: A duplicate report has been generated due to demographic updates. Performed at: [address] [facility], [place] [id number] MD Jay Orlando MD Phone: [phone] Performed at: [address] [facility] [id number] MD Melissa Urena MD Phone: [phone]
--- NOTE | 2018-09-25 12:35 | NUR ---
WOUND FOLLOW UP: PT. WAS SEEN TODAY BY DR. BARBER AND MYSELF. PT. MIDLINE INCSION IS CLINICALLY BETTER. PT. IS STILL HAVEING PAIN BUT, IS MORE COMFORTABLE THAN PRIOR. RECOMMENDATIONS: CONTINUE WITH CURRENT PLAN OF CARE. PT. AND STAFF NURSE WERE INSTRUCTED ON PLAN OF CARE.
[2018-09-25 16:27] LABS: MAGNESIUM 2.5 mg/dL (1.8-2.4); POTASSIUM 3.8 mmol/L (3.5-5.1)
--- NOTE | 2018-09-25 18:17 | NUR ---
ASSESSMENT DOCUMENTED. VSS. UP IN THE CHAIR THIS AM. PARTICIPATED IN PT/OT. RECEIVED PRN PAIN AND ANXIETY MED WITH PARTIAL RELIEF. MIDLINE INCISION C/D/I. TWO STACY DRAIN INTACT AND PATENT. SEEN BY DR. KURTZ. ORDERS GIVEN TO D/C NG TUBE AND START ON CLEAR LIQUIDS. TOLERATED CLEAR LIQUID WELL. TPN INFUSING @ 40 ML/HR. FAMILY UPDATED ON PT,S PROGRESS. PT PROGRESSING SLOWLY TOWARD DISCHARGE GOAL. WILL CONTINUE TO MONITOR.
[2018-09-26 03:57] VITALS: BP 108/69
--- NOTE | 2018-09-26 04:02 | NUR ---
ASSESSMENT DOCUMENTED.PT SLEEPING AT THIS TIME.S/P ABD SURGERY.PAIN MEDS GIVEN PER ORDERS.STACY DRAINS X2,ILEOSTOMY BAG INTACT.DRESSING CHANGED TO MID ABD INCISIONS D/T BEING SOAKED W/DRAINAGE.PT TOLERATED THE PROCEDURE.REMAINS ON TPN AT 55CC/HR.IVF INFUSING.ON ABT THERAPY,TOLERATING.REPOSTIONED IN BED.VOIDING VIA URINAL.POSITIVE BOWELS SOUNDS IN ALL 4 QUADS.VSS.NO CONCERNS VOICED AT THIS TIME.
[2018-09-26 06:01] LABS: HEMATOCRIT 20.3 % (42.0-52.0); MCH 27.5 pg (26.0-34.0); MCHC 34.4 g/dL (28.0-37.0); MCV 79.9 fL (80.0-100.0); PLATELET COUNT 502 thou/uL (150-400); RBC 2.54 mil/uL (4.50-6.00); RDW 14.8 % (10.5-14.5); WBC 5.6 thou/uL (4.0-11.0)
[2018-09-26 06:17] LABS: ALBUMIN 0.9 g/dL (3.4-5.0); CALCIUM 7.1 mg/dL (8.5-10.1); CREATININE 0.5 mg/dL (0.7-1.3); MAGNESIUM 1.8 mg/dL (1.8-2.4); PHOSPHORUS 2.5 mg/dL (2.5-4.9); POTASSIUM 3.3 mmol/L (3.5-5.1); TOTAL BILIRUBIN 0.4 mg/dL (<0.1-1.0); TOTAL PROTEIN 3.7 g/dL (6.4-8.2)
[2018-09-26 06:39] LABS: ABSOLUTE NEUTROPHILS 4.5 thou/uL (1.4-8.2)
[2018-09-26 06:41] LABS: MICROCYTES 1+; PLATELET ESTIMATE INCREASED; POLYCHROMASIA 1+
[2018-09-26 07:18] VITALS: BP 106/64
[2018-09-26 12:15] VITALS: BP 109/65
--- NOTE | 2018-09-26 14:19 | NUR ---
Case discussed with the care team. LTAC may be a better option for the pt than SNF due to his complex medical needs as well as therapy. Discussed with the pt's mother at bedside. Pt was sleeping soundly. Mom is familiar and open to discussion but wants to see how the next few days go. She feels he may do better at home with home health and/or infusion if needed. They have family members available 24/ to care for him and she is concerned about his mental health as well. Support provided. LTAC referrals initiated for feedback on beds and qualifying criteria. Mom agreeable to above and may try to tour this weekend. She believes her was at [facility] prior to his passing in 2011. Will follow.
--- NOTE | 2018-09-26 15:12 | NUR ---
OSTOMY FOLLOW UP: PT. OSTOMY APPLIANCE WAS CHANGED TODAY BY STAFF NURSE. APPLIANCE IS IN GOOD WORKING ORDER AND PT. HAS NO COMPLAINTS AT THIS TIME.
--- NOTE | 2018-09-26 15:23 | NUR ---
ASSUMED PATIENT CARE THIS AM. PATIENT LYING IN BED, A&O. ROOM AIR. PATIENT UP TO CHAIR THIS AFTERNOON WITH PT. THIS RN CHANGED MIDLINE DRESSING AND REPLACED OSTOMY DRESSING. PATIENT HAS A LOT OF DRAINAGE FROM ILEOSTOMY, THIS RN HOOKED PATIENT UP TO DRAINAGE BAG AT BEDSIDE TO ASSIST AND DECREASE RISK OF OSTOMY BAG BUSTING OPEN AGAIN. PAIN AND ANXIETY MANAGED WITH IV MEDICATIONS. PATIENT TOLERATING CLEAR LIQUIDS AND FULL LIQUIDS AT THIS TIME. MOTHER AT BEDSIDE. FALL RISK. PATIENT VOIDING PER URINAL. PATIENT ABLE TO USE CALL LIGHT APPROPRIATLY. WILL CONTINUE TO MONITOR.
[2018-09-26 15:40] VITALS: BP 106/68
--- NOTE | 2018-09-26 16:48 | NUR ---
WOUND FOLLOW UP: PT. WAS SEEN TODAY BY DR. BAR AND MYSELF. PT. WOUND IS CLINICALLY BETTER WITH EACH VISIT. RECOMMENDATIONS: CONTINUE WITH CURRENT PLAN OF CARE. PT. AND STAFF NURSE WERE INSTRUCTED ON PLAN OF CARE.
[2018-09-26 19:12] VITALS: BP 110/64
[2018-09-27 04:57] LABS: MCH 27.8 pg (26.0-34.0); MCHC 34.9 g/dL (28.0-37.0); MCV 79.7 fL (80.0-100.0); PLATELET COUNT 526 thou/uL (150-400); RBC 2.51 mil/uL (4.50-6.00); RDW 14.9 % (10.5-14.5); WBC 5.3 thou/uL (4.0-11.0)
[2018-09-27 05:00] LABS: CALCIUM 7.1 mg/dL (8.5-10.1); CREATININE 0.6 mg/dL (0.7-1.3); POTASSIUM 3.8 mmol/L (3.5-5.1)
[2018-09-27 05:51] LABS: ABSOLUTE NEUTROPHILS 4.1 thou/uL (1.4-8.2); LARGE PLATELETS OCCASIONAL; METAMYELOCYTES 1 %
[2018-09-27 06:16] VITALS: BP 101/57
[2018-09-27 07:15] VITALS: BP 108/67
--- NOTE | 2018-09-27 07:45 | NUR ---
ASSUME CARE 1900. PT/VITALS STABLE. CONSTANT INCISIONAL PAIN. MEDS NEEDED. ASSESSMETN ASA CHARTED. POOR ACTIVITY TOLERANCE. PT/OT WORKING WITH PT. PROGRESSING SLOWLY WITH POC. STOOL AND DRAIANGE AMOUNT DECREASING AND PT UP'ED TO SOFT DIET. WILL CONTINUE TO MONITOR AND FOLLOW WITH POC
[2018-09-27 08:14] LABS: MAGNESIUM 1.9 mg/dL (1.8-2.4)
[2018-09-27 11:50] VITALS: BP 99/61
[2018-09-27 15:20] VITALS: BP 105/61
--- NOTE | 2018-09-27 17:55 | NUR ---
ASSESSMENT CHARTED. VSS. PT ALERT AND ORIENTED. WOUND CARE PROVIDED ON THE ABD INCISION. DRESSING CHANGED. ILIOSTOMY BAG AND 2 STACY DRAIN INTACT. PRN PAIN MED AND ANXIETY MED GIVEN. TOLERATED SOFT DIET. TPN INFUSING @ 55 ML/HR. UP IN THE CHAIR THIS SHIFT. EDUCATION PROVIDED ON WOUND CARE. MOTHER AT THE BEDSIDE. PT PROGRESSING SLOWLY TOWARD DISCHARGE GOAL. WILL CONTINUE TO MONITOR.
[2018-09-27 19:16] VITALS: BP 122/61
[2018-09-28 03:52] VITALS: BP 122/63
[2018-09-28 06:22] LABS: HEMATOCRIT 20.5 % (42.0-52.0); HEMOGLOBIN 6.8 gm/dL (14.0-18.0); RBC 2.56 mil/uL (4.50-6.00); RDW 14.9 % (10.5-14.5); WBC 5.3 thou/uL (4.0-11.0)
[2018-09-28 06:25] LABS: MCH 26.8 pg (26.0-34.0); MCHC 33.4 g/dL (28.0-37.0); MCV 80.2 fL (80.0-100.0)
--- NOTE | 2018-09-28 06:34 | NUR ---
PAIN CONTROL AND COMFORT WERE TONIGHTS PRIORITY. SEAL ON ILEOSTOMY LIFTED OFF SKIN. REPLACED WITH TEMPORARY APPLIANCE UNTIL NEW APPLIANCES COULD BE BROUGHT UP. PT WAS IN THE BED MOST OF THE EVENING. WENT TO CHAIR AT 0600. FOLLOWING POC WITH IVF'S AND TPN. GOOD AMOUNT OF DRAINAGE FROM BOTH STACY DRAINS. VSS AND PT IS FEVER FREE. HOURLY ROUNDING.
[2018-09-28 06:37] LABS: CALCIUM 7.7 mg/dL (8.5-10.1); CREATININE 0.6 mg/dL (0.7-1.3); MAGNESIUM 1.8 mg/dL (1.8-2.4); POTASSIUM 3.8 mmol/L (3.5-5.1)
[2018-09-28 07:10] VITALS: BP 108/86
[2018-09-28 10:29] VITALS: BP 101/64; BP 107/57
[2018-09-28 11:15] VITALS: BP 110/69
[2018-09-28 15:30] VITALS: BP 111/68
--- NOTE | 2018-09-28 17:26 | NUR ---
PT ALERT AND ORIENTED. VSS. HGB 6.8. RECEIVED 1 UNIT OF BLOOD. ABX TREATMENT GIVEN. WOUND AND ILIOSTOMY PROVIDED. PRN PAIN MED AND ANXIETY MED GIVEN WITH PARTIAL RELIEF. FALL PRECAUTION IN PLACE. WILL CONTINUE TO MONITOR.
[2018-09-28 20:10] VITALS: BP 118/79
[2018-09-29 04:30] VITALS: BP 111/54
[2018-09-29 06:03] LABS: HEMATOCRIT 23.7 % (42.0-52.0); HEMOGLOBIN 8.1 gm/dL (14.0-18.0); MCH 27.6 pg (26.0-34.0); MCV 81.2 fL (80.0-100.0); RBC 2.92 mil/uL (4.50-6.00); RDW 15.1 % (10.5-14.5); WBC 5.1 thou/uL (4.0-11.0)
[2018-09-29 06:13] LABS: CALCIUM 7.6 mg/dL (8.5-10.1); CREATININE 0.6 mg/dL (0.7-1.3); MAGNESIUM 1.7 mg/dL (1.8-2.4); POTASSIUM 3.8 mmol/L (3.5-5.1)
[2018-09-29 07:05] VITALS: BP 101/64
--- NOTE | 2018-09-29 07:38 | NUR ---
ASSUME CARE 1900. PT/VITALS STABLE. CONSTANT INCISIONAL PAIN AT 8/10. POOR ACTIVITY TOLERANCE. OOB TO CHAIR THIS AM WITH MAX ASSIST AND PT IS TIME CONSUMING. PURULENT DRAIANGE NOTED FROM BOTH STACY DRAINS. SOFT UNFORMED STOOL FROM ILEOSTOMY. ASSESSMENT CHARTED. PROGRESSING WITH POC. PLAN IS FOR ID TO SEE PT AND CHECK OUT DRAINAGE FROM STACY DRAIN. WILL CONTINUE TO MONITOR AND FOLLOW WITH POC
--- NOTE | 2018-09-29 11:58 | NUR ---
Nutrition: TPN to continue which RD feels appropriate. Pt tolerating meals but still inadequate in setting of severe malnutrition. REC decrease rate to 40 mL/hr to meet ~50% of needs at this time.
[2018-09-29 12:20] VITALS: BP 107/75
--- NOTE | 2018-09-29 15:10 | NUR ---
met with patient and mother. Patient concerned his methadone clinic is closed today but he is worried if he does not go they will cut methadone in 1/2. called clinic [phone] they are closed today. Updated patient and mother. Discussed LTAC. Gave patient brochure for [facility] as he reports that is closest in area. Mother and patient are discussing LTAC.
[2018-09-29 16:20] VITALS: BP 100/64
--- NOTE | 2018-09-29 16:21 | NUR ---
WOUND FOLLOW UP: PT. WAS SEEN TODAY BY DR. BAR AND MYSELF. PT. HAD A SMALL PIECE OF SUTURE THAT WAS BOTHER HIM SO, DR. BAR REMOVED IT. PT. WOUND BED IS HEALING WELL. RECOMMENDATIONS: CONTINUE WITH CURRENT PLAN OF CARE. PT. AND STAFF NURSE WERE INSTRUCTED ON PLAN OF CARE.
--- NOTE | 2018-09-29 16:25 | NUR ---
OSTOMY FOLLOW UP: PT. OSTOMY APPLIANCE WAS CHANGED TODAY. PT. STOMA IS BEEFY RED AND PROTRUDED. PT. MATT-STOMAL SKIN IS INTACK AND FREE OF EXCORATION. RECOMMENDATIONS: CONTINUE TO POUCH WITH A 2 PIECE SYSTEM CONVEX SHASHI AND GEORGIKINS RING PT. AND STAFF NURSE WERE INSTRUCTED ON PLAN OF CARE.
--- NOTE | 2018-09-29 18:18 | NUR ---
PT ALERT AND ORIENTED. VSS. RECEIVED PRN PAIN MED WITH PARTIAL RELIEF. WOUND CARE PROVIDED BY WOUND NURSE. ILIOSTOMY BAG CHANGED. ON CONTACT ISOLATION FOR MRSA. IV ABX GIVEN. WILL CONTINUE TO MONITOR.
[2018-09-29 20:30] VITALS: BP 104/61
[2018-09-30 03:42] LABS: HEMATOCRIT 23.7 % (42.0-52.0); HEMOGLOBIN 8.2 gm/dL (14.0-18.0); MCH 27.8 pg (26.0-34.0); MCHC 34.4 g/dL (28.0-37.0); MCV 80.7 fL (80.0-100.0); RBC 2.94 mil/uL (4.50-6.00); RDW 15.2 % (10.5-14.5); WBC 6.3 thou/uL (4.0-11.0)
[2018-09-30 03:49] LABS: CALCIUM 7.7 mg/dL (8.5-10.1); CREATININE 0.5 mg/dL (0.7-1.3); MAGNESIUM 1.7 mg/dL (1.8-2.4); POTASSIUM 4.2 mmol/L (3.5-5.1)
[2018-09-30 04:59] VITALS: BP 105/66
--- NOTE | 2018-09-30 06:10 | NUR ---
ASSUMED CARE AT 1900,. PT ALERT AND ORIENTED. C/O GENERALIZED ABDOMINAL. DENIES CHEST PAIN NAUSEA AND VOMITING. MORPHINE Q4 FOR PAIN. ATIVAN X1 DURING THE NIGHT. INCREASED STACY DRAINAGES. L STACY- 100 CC CLOUDY YELLOW DRAINAGE, AND THINKER, NO ORDER ( SEROPURULENT) R STACY- 25 CC. SEROUANGUINUS DRAINAGE. NO ORDER. PT VITALSIGHTS STABLE. ACHS BG NORMAL. TPN RUNNING AT 55/HR. SCHEDULE ABX AND NS RUNNING. ILEOSTOMY BAG INTACT, LIQUID STOOL . GOOD URINE OUTPUT. 1180 CC. WILL KEEP MONITORING FOLLOW POC.
[2018-09-30 07:00] VITALS: BP 108/67
--- NOTE | 2018-09-30 10:29 | HC ---
[facility] [address] [place] [address] CONSULTATION Name: SMITA CHRISTIAN Room #: 200-I ADM IN M.R.#: [id number] Admission: 09/21/18 ������������������ Attend Phys: Jay Cisse MD Discharge: ������������������ Date of : 80 Report #: [id number] THIS REPORT FOR: //name// CC: Jay Cisse [facility] physician/PCP DATE OF SERVICE: 09/29/2018 INFECTIOUS DISEASE CONSULTATION: ATTENDING PHYSICIAN: Dr. Cisse. REASON FOR CONSULTATION: Antibiotic management for MRSA infection. HISTORY OF PRESENT ILLNESS: A 38-year-old white man with history of Crohn's disease since 2006, treated in the past with disease modifying drugs by Dr. Reinaldo Landaverde. The patient subsequently could not see Dr. Reinaldo Landaverde anymore until recently. He was recently hospitalized at [facility] and underwent surgical intervention by Dr. Eagle Baez consistent of exploratory laparotomy, lysis of adhesions, ileocolonic and distal small bowel resection, abdominal washout, superficial wound vacuum placement. The patient required rehospitalization on 09/22/2018 with acute peritonitis and air fluid levels in the abdomen and he undergoes exploratory laparotomy, ileocolonic anastomosis resection and lysis of adhesions, abdominal washouts and ileostomy and placement of 2 STACY drains. The patient's intra-abdominal fluid culture revealed growth of methicillin-resistant Staphylococcus aureus, Enterococcus faecalis and Klebsiella pneumoniae. The patient is on treatment with Zosyn and vancomycin. ID opinion is requested. The patient is having chronic abdominal pain for which he is on methadone. PAST MEDICAL HISTORY: Crohn's disease for many years since 2006 for which he has received Humira that have not helped his Crohn's disease. He also received other disease modifying drugs and was not helped by that. The patient has history of Arnold-Chiari malformation and on account of that he has chronic left-sided neurologic dysfunction. The patient has previous episode of appendectomy, abscess and abdominal resection, lysis of adhesions. He had 2 further surgical interventions here on 09/11/2018 and 09/22/[address] Eagle Baez. DRUG ALLERGIES: IODINE. MEDICATIONS: The patient is on vancomycin 1 gram IV every 12 hours, Zosyn 3.375 grams IV every 8 hours, TPN, morphine sulfate p.r.n., lorazepam p.r.n., enoxaparin 40 mg subQ daily, sodium hypochlorite topical to abdominal wound, p.r.n. glucagon, p.r.n, Benadryl and p.r.[place] [address] CONSULTATION Name: SMITA CHRISTIAN Room #: 200-I [facility] IN ..#: [id number] Admission: 09/21/18 ������������������ Attend Phys: Jay Cisse MD Discharge: ������������������ Date of : 80 Report #: [id number] REVIEW OF SYSTEMS: See H and P and as above. PHYSICAL EXAMINATION: GENERAL: Chronically ill-appearing white man. VITAL SIGNS: Temperature 98, pulse 96, respirations 18, BP 101/64. HEENT: Wearing dark glasses in the room. Pupils reactive. Mouth: No thrush. NECK: Supple. LUNGS: Clear to auscultation. HEART: S1, S2. No gallop or murmur. ABDOMEN: Revealed ileostomy with large liquid stool output. He has 2 STACY, the right-sided STACY putting some turbid-looking fluid, but not as bad as the one on the left side that is putting out what appears to be feculent material. The abdominal wound is mildly dehisced and is packed with gauze. EXTREMITIES: No clubbing, cyanosis. The patient has clubbing of fingers. No pretibial edema. NEUROLOGIC: Grossly within normal limits. LABORATORY DATA: Sodium 138, potassium 3.8, BUN 8, creatinine 0.6. Magnesium 1.7 mg/dL, albumin 0.9 g/dL. WBC 5100, hemoglobin 8.1 g/dL, I suspect this is post transfusion since 09/28/2017, it was as low as 6.8 g/dL, platelets 550,000. Vancomycin trough is pending. MICROBIOLOGY DATA: The peritoneal fluid culture revealed gross of 4+ Klebsiella pneumoniae; 4+ MRSA and Enterococcus faecalis. The Enterococcus faecalis is penicillin sensitive. RADIOLOGY EVALUATION: A venous upper extremity revealed segment of occlusive clot right cephalic vein at the elbow level, possibly chronic. There is also a clot in the basilic vein on the right shoulder subcutaneous edema. Chest x-ray revealed NG tube in place. No acute cardiopulmonary process. CT scan of the abdomen on 09/21/2018, revealed air fluid levels, massive intraperitoneal free air is possibly anastomotic leak. ASSESSMENT: 1. Acute peritonitis secondary to anastomotic leak, infection with Klebsiella pneumoniae, Enterococcus faecalis, and methicillin-resistant Staphylococcus aureus. 2. Crohn's disease, status post multiple surgical interventions. 3. Anemia of chronic disease. 4. Severe malnutrition. 5. IODINE ALLERGY. SUGGESTIONS: Recommend for the time being, we will continue coverage with vancomycin. We will ask pharmacy to manage. Continue Zosyn 3.375 grams IV every 8 hours. [facility] [address] [place] [address] CONSULTATION Name: SMITA CHRISTIAN Room #: 200-I ADM IN M.R.#: [id number] Admission: 09/21/18 ������������������ Attend Phys: Jay Cisse MD Discharge: ������������������ Date of : 80 Report #: [id number] Swift, thank you for requesting my suggestions in the care of your patient. ��������������������������������������������� <ELECTRONICALLY SIGNED> ���������������������������������������� By: Juan Tyson MD ��������������������������������������������� 09/30/18 1029 [id number] Juan Tyson MD /nt
[2018-09-30 11:25] VITALS: BP 99/77
[2018-09-30 16:25] VITALS: BP 93/58
--- NOTE | 2018-09-30 16:56 | NUR ---
WOUND FOLLOW UP: PT. WAS SEEN TODAY BY DR. BAR AND MYSELF. PT. WOUND IS GRANULATING WELL AT THIS TIME. PT. IN GOOD SPIRITS. RECOMMENDATIONS: CONTINUE WITH CURRENT PLAN OF CARE. PT. AND STAFF NURSE WERE INSTRUCTED ON PLAN OF CARE.
--- NOTE | 2018-09-30 17:13 | NUR ---
Patient insurance denied LTAC, discussed with patient. He prefers home with HH, no preference for an agency just one in network. Patients methadone clinic aware he is in hospital.
--- NOTE | 2018-09-30 18:32 | NUR ---
PATIENT ALERT AND ORIENTED. VSS. RECEIVED PRN PAIN MED WITH PARTIAL RELIEF. WOUND CARE PROVIDED. ABX GIVEN ORDERED, TPN INFUSING @ 55 ML/HR. CONTACT ISOLATION MAINTAINED. TWO STACY DRAIN INTACT. NPO AFTER MIDNIGHT. WILL CONTINUE TO MONITOR.
[2018-09-30 20:36] VITALS: BP 97/59
[2018-10-01] VITALS (20 sets, daily range): BP systolic 90–115; BP diastolic 48–73
--- NOTE | 2018-10-01 03:41 | NUR ---
ASSUMED CARE AT 1900. PT A0X4. STILL C/O ABDOMINAL PAIN. PT WAS STARTED ON METHADONE TID. MORPHINE PRN GIVEN IN BETWEEN . VITAL SIGNS STABLE. PT STILL ON ABX ZOSYN AND VANCO. WAS NPO SINCE MIDNIGHT FOR SCHEDULE AM SURGERY. DENIES , CHEST PAIN, N/V. ILEOSTOMY, AND STACY DRAINS L & R INTACT. WILL CONTINUE TO FOLLOW PLAN OF CARE.
[2018-10-01 04:50] LABS: HEMATOCRIT 22.5 % (42.0-52.0); HEMOGLOBIN 7.7 gm/dL (14.0-18.0); MCHC 34.4 g/dL (28.0-37.0); MCV 81.4 fL (80.0-100.0); RBC 2.76 mil/uL (4.50-6.00); RDW 15.6 % (10.5-14.5); WBC 6.2 thou/uL (4.0-11.0)
[2018-10-01 04:53] LABS: CALCIUM 7.7 mg/dL (8.5-10.1); CREATININE 0.5 mg/dL (0.7-1.3); MAGNESIUM 1.8 mg/dL (1.8-2.4); POTASSIUM 4.2 mmol/L (3.5-5.1)
[2018-10-01 04:54] LABS: INR 1.1; PROTIME 11.5 Seconds (9.3-11.4)
--- NOTE | 2018-10-01 19:26 | NUR ---
ASSUMED CARE OF PT AT SHIFT CHANGE. ASSESSMENTS CHARTED. MEDS GIVEN PER OCT. PT ALERT AND ORIENTED, VSS, C/O PAIN, MANAGED WITH PO AND IV PAIN MEDS. PT HAD ABCESS DRAINAGE THIS SHIFT, NEW DRAIN PLACED. CXR OBTAINED -SEE RESULTS. CXR ORDERED FOR AM PER PHYSICIAN ORDERS. PT DIET ADVANCED, TOLERATING WELL. TPN CONTINUES AT 40ML/H. PT GOT UP WITH PHYSICAL THERAPY TODAY, HR ELEVATED WITH ACTIVITY, RESOLVED WITH REST. PT CALLS APPROPRIATELY, FALL PRECAUTIONS IN PLACE. FAMILY VISITED PT THIS SHIFT. PHYSICIAN VISITED WITH PT AND FAMILY, FAMILY UPDATED. MIDLINE INCISION CHANGED PER WOUND CARE. WILL CONTINUE TO MONITOR AND FOLLOW POC.
[2018-10-02 05:01] VITALS: BP 113/64
--- NOTE | 2018-10-02 05:12 | NUR ---
PT ALERT AND ORIENTED. HAD A ABSCESS DRAINAGE YESTERDAY. PT STILL C/O GENERALIZED ABDOMINAL PAIN. NOTED GENERALIZED WEAKNESS WITH TRANSFERS. TPN INTACT AT 40 CC/HR. SURGICAL WOUND DRESSING INTACT. PT DID NOT WANT IT TO BE TONIGHT BECAUSE , " IT HURTS SO BAD. I WOULD RATHER WAIT TILL MORPHINE OF THE WOUND TEAM, SO THAT I DON'T HAVE TO BE RIPPED APART TWICE." HE STATED. PAIN MANAGED WITH SCHEDULE METHADONE AND PRN MORPHINE. WILL CONTINUE TO MONITOR PATIENT AND FOLLOW POC.
[2018-10-02 07:15] VITALS: BP 94/53
[2018-10-02 12:30] VITALS: BP 109/65
--- NOTE | 2018-10-02 14:56 | NUR ---
WOUND FOLLOW UP: PT. WAS SEEN TODAY BY DR. BAR AND MYSELF. PT. WOUND IS STABLE AND HEALTHY GRANULATION TISSUE IS PRESENT THROUGHOUT ALL OF THE WOUND BED. RECOMMENDATIONS: CONTINUE WITH CURRENT PLAN OF CARE. PT. AND STAFF NURSE WERE INSTRUCTED ON PLAN OF CARE.
[2018-10-02 15:40] VITALS: BP 103/63
--- NOTE | 2018-10-02 16:06 | PATH ---
[facility] [address] [place] [address] PATHOLOGY RPT PROCEDURE Name: SMITA CHRISTIAN Room #: 200-I ADM IN .R.#: [id number] ������������������ Admission: 09/21/18 ������������������ Date of : 80 Discharge: Report #: [id number] Path Case #: [id number] Note [facility] Accession Number: [id number] TESTS RESULT FLAG UNITS REF RANGE LAB Clinician Provided Cytology Information No. of containers..01 Other (Miscellaneous) Source: 01 ABDOMINAL FLUID DIAGNOSIS: 02 ABDOMINAL FLUID NEGATIVE FOR MALIGNANT CELLS. REACTIVE MESOTHELIAL CELLS ARE PRESENT. THIS INTERPRETATION INCLUDES EVALUATION OF A CELL BLOCK. MARKED ACUTE INFLAMMATION CONSISTENT WITH AN EXUDATE. Signed out by: 02 Melissa Urena MD, Pathologist NPI- [id number] Performed by: Marion Leo, Firestopper Technician ([facility]) Gross description: 01 5ML, RED, CLOUDY /LCS FLAG LEGEND: L-Low Normal,H-High Normal,LL-Alert Low,HH-Alert High <-Panic Low,>-Panic High,A-Abnormal,AA-Critical Abnormal Performed at: [address] [place] [address] Jay Orlando MD, [address] [address] Melissa Urena MD, Performed at: [address], [place], [place] [id number] MD Jay Orlando MD Phone: [phone]
[2018-10-02 21:05] VITALS: BP 109/60
[2018-10-03 04:37] VITALS: BP 140/64
--- NOTE | 2018-10-03 07:18 | NUR ---
ASSUME CARE 1900. PT /VITALS STABLE. CONSTANT INCISIONAL PAIN NOTED. POOR ACTIVITY TOLERANCE AND APPETITE NOTED. SLOWLY PROGRESSING WITH POC. ASSESSMENT CHARTED. SR ON MONITOR. TPN AT 40ML/HR. POOR NUTRITIONAL INTAKE. BROWN SOFT UNFORMED STOOL NOTED. DRAINAGE ARE CLEARER WITH SEROUS DRAINAGE AND MILD PURULENCE NOTED. PLAN IS TO CONTINUE ABX TX AND TPN UNTIL PT IMPORVES AND CAN TAKE FOOD PO. WILL CONTINUE TO MONITOR AND FOLLOW WITH POC
[2018-10-03 08:29] VITALS: BP 104/66
[2018-10-03 11:55] VITALS: BP 102/63
--- NOTE | 2018-10-03 12:00 | NUR ---
FOLLOWING FOR DC PLANNING. CLNICAL INFO REVIEWED. RUQ DRAIN WITH DECREASING DRAINAGE AND PER DR. KURTZ MAY BE ABLE TO PULL DRAIN THIS WEEKEND. PT EATING, REMAINS ON TPN UNTIL TAKING IN ADEQUATE PO NUTRITION. DIETARY FOLLOWING. HOSPITALIST NOTE INDICATES PLAN TO CONVERT IV BENZO/OPIATE TO PO. ALSO PT NEEDS OT INCREASE MOBILITY. PT'S INSURANCE HAS DENIED LTACH LOC. PT HAS BEEN TOO ACUTE FOR SKILLED REHAB STAY AND ON METHADONE WHICH IS A BARRIER TO SKILLED REHAB PLACEMENT. PT AND HIS MOTHER WISH TO DC TO HOME. WILL NEED HOME HEALTH RN/PT/OT FOR HOME DC. NO WEEKEND DC PLANNED.
--- NOTE | 2018-10-03 14:52 | NUR ---
WOUND FOLLOW UP: PT. WAS SEEN TODAY BY DR. BAR AND MYSELF. PT. WOUND IS CLINICALLY BETTER WITH EACH VISIT. PT. DRESSING AND ALL DRAINS SITES WERE CHANGED THIS VISIT. PT. TOLERATED WELL. RECOMMENDATIONS: CONTINUE WITH CURRENT PLAN OF CARE. PT. AND STAFF NURSE WERE INSTRUCTED ON PLAN OF CARE
--- NOTE | 2018-10-03 14:54 | NUR ---
OSTOMY FOLLOW UP: PT. OSTOMY APPLIANCE WAS CHANGED TODAY. PT. WAS CHANGED TO A SMALL WAFFER AND BAG. THE FIT WAS MUCH MORE APPROPRIATE.
[2018-10-03 16:09] VITALS: BP 91/53
--- NOTE | 2018-10-03 17:52 | NUR ---
PT CARE ASSUMED APPROX 0700. PT ALERT AND ORIENTED X4. DENIES SOA. REPORTS ABD PAIN /. HYDROCODONE AND MORPHINE USED TO MANAGE PAIN. IV ATIVAN CHANGED TO PO XANAX AND PT REFUSES. VSS. DRAIN AND WOUND CARE DONE PER WOUND CARE NURSE. ILEOSTOMY REMAINS TO DD. ALL DRAINS EMPTIED. PT TO CHAIR MOST OF SHIFT. TPN AND IV ABT/IVF REMAIN TO POC. BS WNL. CALORIE COUNT REMAINS TO POC. PT APPETITE POOR. NO DISTRESS NOTED THIS SHIFT.
[2018-10-03 20:13] VITALS: BP 111/56
[2018-10-04 04:43] VITALS: BP 113/66
[2018-10-04 07:24] LABS: HEMATOCRIT 23.3 % (42.0-52.0); HEMOGLOBIN 7.5 gm/dL (14.0-18.0); MCH 26.5 pg (26.0-34.0); MCHC 32.3 g/dL (28.0-37.0); RBC 2.84 mil/uL (4.50-6.00); RDW 15.6 % (10.5-14.5); WBC 6.9 thou/uL (4.0-11.0)
[2018-10-04 07:35] LABS: CALCIUM 7.9 mg/dL (8.5-10.1); CREATININE 0.6 mg/dL (0.7-1.3); MAGNESIUM 1.8 mg/dL (1.8-2.4); PHOSPHORUS 3.4 mg/dL (2.5-4.9)
[2018-10-04 08:05] VITALS: BP 98/61
--- NOTE | 2018-10-04 08:40 | NUR ---
ASSUME CARE 1900. PT/VITALS STABLE. CONSTANT INCISIONAL AND GENERALIZED PAIN. STACY DRAIN X 2 AND EOIGASTRIC DRAINAGE BAG NOTED. BROWN SOFT UNFORMED STOOL NOTED IN ILEOSTOMY BAG. ASSESSMENT CHARTED. SR ON MONITOR. PROGRESSING WELL WITH POC. PLAN IS TO CONTINUE WITH ABX TX AND TPN, AND ENCOURAGE NUTRITIONAL INTAKE. WILL CONTINUE TO MONITOR AND FOLLOW WITH POC
[2018-10-04 12:47] VITALS: BP 110/65
[2018-10-04 17:21] VITALS: BP 95/55
[2018-10-04 20:27] VITALS: BP 104/53
--- NOTE | 2018-10-04 21:22 | NUR ---
PATIENT ALERT AND ORIENTED WITH NEAR CONSTANT PAIN IN ABDOMEN THATS EXACERBATED BY MOVEMENT. PATIENT HAD PO MEAN INTAKE FOR BREAKFAST AND LUNCH. MOTHER, JEZ, AT BEDSIDE FOR SEVERAL HOURS LATE MORNING. PATIENT UP TO CHAIR AT 1430 INTO SUPERVISOR TAPING. PATIENT SLEPT IN CHAIR SEVERAL HOURS IN THE AFTERNOON. PATIENT LIKES TO KNOW WHEN NEXT PRN PAIN MED IS AVAILABLE AND REQUEST IT BE WRITTEN ON BOARD IN ROOM.
--- NOTE | 2018-10-05 04:16 | NUR ---
ASSESSMENT DOCUMENTED.PT BEEN RESTING IN BED.EARLIER IN THE SHIFT WAS IN THE CHAIR FOR 2HRS PRIOR TO GOING TO BED.PT TOLERATED TRANSFERS FROM CHAIR TO BED ALTHOUGH REQUIRES EXTRA TIME TO COMPLETE THE TASK.GENERALIZED PAIN TO STOMACH THROUGH THE NIGHT THAT IS CONTROLLED WITH PAIN MEDS.REMAINS ON TPN AT 40CC/HR ALONG WITH NS AT 50ML/HR.TOLERATING.ABT INFUSED PER ORDERS.MID ABD INCISION COVERED WITH CLEAN,DRY DRESSING.ANAND STACY DRAINS IN PLACE DD.ILEOSTOMY BAG WITH LOOSE AND SOLID STOOL.PIG TAIL DRAINING TUBE IN PLACE.VOIDS VIA URINAL.PT DENIES ANY OTHER NEEDS AT THIS TIME.WILL CONT TO MONITOR PER POC
[2018-10-05 06:00] VITALS: BP 114/65
[2018-10-05 13:40] VITALS: BP 106/51
[2018-10-05 17:00] VITALS: BP 90/50
--- NOTE | 2018-10-05 18:10 | NUR ---
PT CARE ASSUMED APPROX 0700. PT ALERT AND ORIENTED X4. DENIES SOA. C/O GENERALIZED PAIN 03/21. PAIN MANAGED WITH OXY AND MORPHINE. VSS. BS WNL. MOTHER AT BEDSIDE THIS AM. RLQ DRAIN REMOVED BY SURGEON THIS AM. NO ISSUES POST DRAIN REMOVAL. PT TO CHAIR THIS AFTERNOON AND BACK TO BED THIS EVENING. IV ABT REMAIN TO POC. IVF AND TPN REMAIN TO POC. TPN RATE INCREASED PER PHARMACY. NO DISTRESS NOTED THIS SHIFT.
[2018-10-05 21:23] VITALS: BP 104/64
[2018-10-06 05:42] VITALS: BP 109/64
--- NOTE | 2018-10-06 07:51 | NUR ---
ASSUME CARE 1900. PT/VITALS STABLE. BP COULD RUN SOFT AT TIMES BUT PT STABLE. CONSTANT PAIN AT AN 8-10 NOTED THROUGHOUT THE SHIFT. ADEQUATE URINE OUTPUT NOTED. DRAINAGE AMOUNT FORM LEFT STACY AND MID DRAINAGE BAG DECREASING COMPARED TO PREVIOUS SHIFTS. PT STILL ON TPN. STILL VERY POOR APPETITE. DRINKS ADEQUATELY AND BROWN LIQUID STOOL NOTED FROM ILEOSTOMY. PROGRESSING SLOWLY WITH POC. ASSESSMENT CHARTED. PLAN IS FOR PATIENT TO REGAIN APPETITE AND CAN SUSTAIN HIMSELF WITHOUT THE TPN. WILL CONITNUE TO MONITOR FOR INFECTION AND NUTRITIONAL INTAKE. WILL CONTINUE TO FOLLOW WITH POC
[2018-10-06 08:12] VITALS: BP 100/59
[2018-10-06 10:37] VITALS: BP 101/60
--- NOTE | 2018-10-06 14:57 | NUR ---
VSS REMAINS NSR. LUNGS DIMINISHED , ENCOURAGED IS RAISES TO 500, RESPIRS SHALLOW, ENCOURAGRED, UP IN CHAIR X 3 HOURW AND TOLERATED WELL, PUTS WEIGHT ON FEET WITH ASSISTANCE, WEAK. APPETITE REMAINS POOR. L AND MIDLINE DRAIN DRAINING STRAW COLOR DRAINAGE. ILLEOSTOMY WITH BROWN LIQUID STOOL. PT REMAINS WTH PAIN IN STOMACH AREA REQUIRING IV MS, PO OXYCONTIN AND METHADONE WITH MODERATE RELIEF OF PAIN. WILL CONTINUE TO MONITER AND CARE FOR PT PER PLAN OF CARE
[2018-10-06 15:30] VITALS: BP 100/60
[2018-10-06 20:27] VITALS: BP 107/64
--- NOTE | 2018-10-07 03:54 | NUR ---
Assumed care at 1900. pt alert and oriented. pain management primary call. see EMAR for documentation. vital signs stable. New TPN bag at 60cc/hr. iv fluids NS at 50cc/hr. good out through void and ileostomy. other drains output as documented in I&O with continue follow plan of care
[2018-10-07 04:52] VITALS: BP 115/73
[2018-10-07 08:06] VITALS: BP 110/75
[2018-10-07 11:43] VITALS: BP 105/63
--- NOTE | 2018-10-07 12:44 | NUR ---
WOUND CONSULT; ROUNDING TODAY WITH DR TRELL DAVIS. THE ABDOMENAL WOUND IS CLINICALLY IMPROVED WITH LESS SLOUGH IN THE WOUNDBED. NO S/S OF INFECTION. RECOMMENDATION; CONTINFUE CURRENT TREATMENT DISCUSSED WITH RN
--- NOTE | 2018-10-07 14:04 | NUR ---
Nutrition: day 2 calorie count shows pt consumed 500 kcals, 30 gm protein or 24% kcal needs, 34% low end protein needs. No significant improvement in appetite since start of calorie count. TPN plus po is meeting 95-100% of needs. Continue present TPN. Difficult situation as pt is turned off by many foods and c/o nausea, early satiety and refuses supplements. Orders meals and eats food from outside mother brings in. Unable to D/C on TPN, RECommend consider appetite stimulant, MVI.
--- NOTE | 2018-10-07 14:45 | NUR ---
VSS REMAINS NSR. LUNGS CLEAR AND DIMINISHED, O2 SAT RA IS 100%, UP TO CHAIR WITH WALKER AND MAX ASSIST. HR UP TO 120-130 WITH TAKING FEW STEPS WITH PT TODAY. APPETITE REMAINS POOR, CALORIE COUNT INTACT. MIDLINE INCISION AND DRAINS INTACT. WILL CONTINUE TO MONITER AND CARE FOR PT PER PLAN OF CARE
[2018-10-07 15:12] VITALS: BP 120/51
--- NOTE | 2018-10-07 16:26 | NUR ---
FAXED TPN ORDERS TO [facility] SPOKE WITH SMITA AND HE RECEIVED INFO. HE WILL LOOK INTO BENEFITS AND SHOULD HAVE ANSWER BY 1700 TODAY. DCP TO FOLLOW.
[2018-10-07 19:19] VITALS: BP 118/78
--- NOTE | 2018-10-08 03:49 | NUR ---
PT ALERT/ORIENTED X4, BASIC SELF CARE ABLE TO PERFORM, VOIDING SELF USING URINAL, ILEOSTOMY TO RIGHT SIDE DRAINING, STOMA RED, PROTRUDING, DRESSING TO MIDLINE CLEAN DRY AND INTACT, REFUSED DRESSING CHANGE THIS SHIFT SINCE IT WAS DONE LATE IN THE AFTERNOON BY DAY RN, STACY PATENT TO SEROUSANGUINOUS DRAINAGE, LEFT UPPER QUAD DRAIN PATENT, NO NAUSEA, PAIN CONTROLLED BY CURRENT PAIN REGIMEN, SCDS TO BLE, USING DARK GLASSES DUE TO LIGHT SENSITIVITY, ENC. 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
[2018-10-08 06:12] LABS: ALBUMIN 0.8 g/dL (3.4-5.0); CALCIUM 8.1 mg/dL (8.5-10.1); CREATININE 2.9 mg/dL (0.7-1.3); MAGNESIUM 2.7 mg/dL (1.8-2.4); PHOSPHORUS 5.8 mg/dL (2.5-4.9); POTASSIUM 5.6 mmol/L (3.5-5.1); TOTAL BILIRUBIN 0.4 mg/dL (<0.1-1.0); TOTAL PROTEIN 4.7 g/dL (6.4-8.2)
[2018-10-08 08:27] VITALS: BP 136/60
[2018-10-08 08:57] LABS: CALCIUM 8.5 mg/dL (8.5-10.1); CREATININE 2.9 mg/dL (0.7-1.3); POTASSIUM 5.9 mmol/L (3.5-5.1)
[2018-10-08 09:01] LABS: PHOSPHORUS 5.8 mg/dL (2.5-4.9)
--- NOTE | 2018-10-08 10:26 | NUR ---
REQUESTED TO LOOK INTO BENEFITS FOR HOME TPN. REFERRAL FAXED TO [facility] PER DC DISTRIBUTION SUPERVISOR AND SPOKE WITH PHARMACIST IN LATE AFTERNOON WHO QUOTED THE FOLLOWIING BENEFITS: NO DEDECTIBLE, 80/20 COVERAGE, 20% PT RESPONSIBILITY IS $102.45/DAY UNTIL REACHES MAX OOP OF $4400. AFTER OOP MAX MET, COVERED AT 100%. PER PHARMACIST,CURRENT BILLING SHOWS PT HAS MET $3200 OF OOP MAX AND UPDATED [facility] PT WITH 2 HOSPITALIZATION, 2 SURGERIES AND 17 HOSPITAL STAY SO FAR SO BELIEVE PT'S OOP MAX HAS BEEN MET. WILL DISCUSS WITH HOSPTIALIST AND PT.
[2018-10-08 10:28] VITALS: BP 119/61
--- NOTE | 2018-10-08 16:18 | NUR ---
FAXED REFERRAL TO [facility] SPOKE WITH BALA IN ADM. SHE WILL REVIEW REFERRAL . DCP TO FOLLOW.
--- NOTE | 2018-10-08 16:42 | NUR ---
WOUND FOLLOW UP: PT. WAS SEEN TODAY BY DR. BAR AND MYSELF. PT. WOUNDS ARE HEALING WELL AND PT. IS IN A GOOD MOOD. RECOMMENDATIONS: CONTINUE WITH CURRENT PLAN OF CARE. PT. AND STAFF NURSE WERE INSTRUCTED ON PLAN OF CARE.
--- NOTE | 2018-10-08 16:54 | NUR ---
Met with patient and mother at bedside. Discussed dc planning. Discussed weakness with patient and therapy recommedations. Reviewed skilled post acute care list. Patient and mom reports patient is not far off from baseline. Mom reports always an adult in the home who can assist Patient with seat in shower and always someone present to assist. Patient and mom reports patient would likely improve at home in own home enviroment. Reviewed HH care and interemittant care. Discussed patient would likely go home with cont TPN. Mom aware reports her was on IV in home setting, mom willing to learn care of TPN. No preference for HH agency and agreeable to any in network including [facility]. Aware of option for skilled care but prefer home with HH.
[2018-10-08 17:02] LABS: URINE BILIRUBIN NEGATIVE (Negative); URINE BLOOD NEGATIVE (Negative); URINE CLARITY CLEAR; URINE COLOR YELLOW; URINE GLUCOSE-RANDOM* NEGATIVE (Negative); URINE KETONES NEGATIVE (Negative); URINE LEUKOCYTES NEGATIVE (Negative); URINE NITRITE NEGATIVE (Negative); URINE PROTEIN (DIPSTICK) NEGATIVE (Negative); URINE SPECIFIC GRAVITY 1.015 (1.005-1.035); URINE UROBILINOGEN 0.2 E.U./dl (0.2-1.0)
[2018-10-08 17:07] LABS: URINE CREATININE-RANDOM* 30.4 mg/dL; URINE PROTEIN-RANDOM* 31.9 mg/dL (<11.9)
[2018-10-08 18:54] VITALS: BP 108/62
--- NOTE | 2018-10-08 19:15 | NUR ---
Pt awake and alert throughout the day. Out of bed for few hours during afternoon with assist of PT. Sinus rhythm. Room air. Nonlabored breathing. Oral intake for food minimal today. Encouraged to try to eat. Poor appetite. Pt reports antibiotics may be contributing to lack of appetite and nausea he has experienced yesterday. TPN at 60 ml/hr. Renal consult today due to increased creatinine. Rain catheter placed per order from Dr Escobedo. Pt required placement of 12 urdu rain due to small urinary meatus. Urine specimens were sent to the lab. Abdominal dressings/drains intact. See wound interventions. Fluid from abdominal drain on right sent to lab for culture. Adequate pain control-see medication record. Meds given for elevated potassium per orders-see medication record. Pt's mother here today. Isolation maintained. Report given to RN assuming care. Afebrile. Slow progress toward goals.
--- NOTE | 2018-10-09 03:37 | NUR ---
AOX4, SR ON THE MONITOR, COMPLAINT OF PAIN ON THE ABDOMEN, MANAGED WITH PRN PAIN MEDS. CLEAR LUNG SOUNDS, ON ROOM AIR. REFUSED DRESSING OF THE MIDLINE INCISION, PATIENT PREFERRED TO HAVE IT DONE IN THE MORNING. ILEOSTOMY BAG WITH GOOD SEAL DRAINING TO A LIQUID BROWNISH STOOL. LEFT ABDOMINAL STACY DRAIN DRAINING TO A SEROUS OUTPUT. RIGHT ABDOMINAL DRAIN INTACT. MCLEOD CATHETER DRAINING TO A YELLOWISH URINE OUTPUT. TPN AT 50 ML/HR AND NSS AT 100 ML/ HR INFUSING WELL ON THE LEFT UPPER ARM TRIPLE LUMEN PICC, PORTS GOOD BLOOD RETURN AND FLUSHES WELL. FF UP POC.
[2018-10-09 03:53] LABS: ALBUMIN 0.9 g/dL (3.4-5.0); CALCIUM 7.8 mg/dL (8.5-10.1); CREATININE 2.8 mg/dL (0.7-1.3); PHOSPHORUS 5.7 mg/dL (2.5-4.9)
[2018-10-09 03:54] LABS: POTASSIUM 5.7 mmol/L (3.5-5.1)
--- NOTE | 2018-10-09 04:43 | NUR ---
04:43> RELAYED NA, K, CO2, BUN, CREA, ALBUMIN, Ca, PHOS RESULT TO MEGHANA FERNANDO. INFORMED HER OF TPN AT 50 ML/HR AND IV NSS AT 100 ML/HR. MEGHANA AGUILAR ORDERED TO GIVE KAYEXELATE.
[2018-10-09 05:17] VITALS: BP 113/66
[2018-10-09 07:05] VITALS: BP 125/75
--- NOTE | 2018-10-09 10:19 | NUR ---
SPOKE WITH SWETHA AT [facility] ABOUT HOME TPN REFERRAL. PT WILL NOT HAVE ANY UP FRONT COST. SWETHA WILL COME TO SEE PT 10/10/18. DC RADIATOR MECHANIC TO FAX [facility] FULL REFERRAL FOR HOME TPN THIS AM.
[2018-10-09 11:25] VITALS: BP 114/64
[2018-10-09 13:40] VITALS: BP 110/65
--- NOTE | 2018-10-09 14:26 | NUR ---
WOUND FOLLOW UP: PT. WAS SEEN TODAY BY DR. BAR AND MYSELF. PT. WOUNDS ARE STABLE AT THIS TIME AND PT. HAS NO COMPLAINTS TODAY. RECOMMENDATIONS: CONTINUE WITH CURRENT PLAN OF CARE. PT. AND STAFF NURSE WERE INSTRUCTED ON PLAN OF CARE.
--- NOTE | 2018-10-09 18:23 | NUR ---
ASSUMED PATIENT CARE AT 0700. A/O X4. ASSISTED UP TO CHAIR IN AM. PAIN MEDS GIVEN NEED. ABD DRESSING CHANGED PER ORDER. PATIENT ABLE TO EAT 30-40% WITH EACH MEAL. VSS, AFEBRILE. PROGRESSING TOWARDS POC GOALS.
[2018-10-09 19:18] VITALS: BP 124/74
[2018-10-10] VITALS (8 sets, daily range): BP systolic 104–132; BP diastolic 67–84
--- NOTE | 2018-10-10 00:56 | NUR ---
Patient assessed and is alert x 4. Skin warm and dry. Resp even and unlabored. Has a midline ABDOMINAL incision that has a dressing on it, no drainage noted. HAS GENERAL WEAKNESS NOTED. HAS A LEFT STACY DRAIN PATENT. ALSO HAS A MCLEOD WITH YELLOW URINE RETURN. ALSO NHAS A RIGHT ILEOSTOMY BAG TO DD. HAS A BROWNISH RETURN NOTED. UP WITH 1 PERSON ASSIST. REFUSED TO GET OUT OF BED THIS SHIFT. ALSO HAS A RIGHT AREA WHERE THE STACY DRAINED WAS PULLED. TAKING A SOFT DIET AND LIQUIDS WELL. TAKES PAIN MEDICATION WITH GOOD RELIEF. HAS A LEFT UPPER ARM PICC THE HAS TPN INFUSING AT 50/HOUR AND NS AT A 100 CC /HOUR. DAY RN SAID THE MIDLINE WOUND WAS SLIGHTLY RED, HAVE NOT SEEN THIS. ACCU CHECK AT 0000 WAS 107. WEARS SUN GLASSES MOST OF THE TIME. IS ON A CALORIE COUNT. SWOLLOWS OKAY. CONT PAIN CONTROL AND TPN.
--- NOTE | 2018-10-10 01:29 | NUR ---
TELE- SHOWS NSR. DENIES ANY SOA OR CHEST PAIN. DC PALN FOR HIM GOING HOME AND TAKING CARE OF HIMSELF. DATE UNKNOWN.
[2018-10-10 03:40] LABS: ALBUMIN 0.8 g/dL (3.4-5.0); CALCIUM 7.4 mg/dL (8.5-10.1); CREATININE 2.5 mg/dL (0.7-1.3); PHOSPHORUS 4.9 mg/dL (2.5-4.9)
[2018-10-10 03:45] LABS: POTASSIUM 4.7 mmol/L (3.5-5.1)
--- NOTE | 2018-10-10 05:10 | NUR ---
DOLLY MEDICATION GIVEN PER REQUEST FOR ABDOMEN AND BACK PAIN.
--- NOTE | 2018-10-10 15:25 | NUR ---
WOUND FOLLOW UP: PT. WAS SEEN TODAY FOR FOLLOW UP. PT. WOUND CARE ORDERS WERE UPDATED TO AID IN WOUND HEALING. ALL DRAIN SITES WERE CHANGED AND OSTOMY CARE COMPLETED AT THIS VISIT. RECOMMENDATIONS: CONTINUE WITH CURRENT PLAN OF CARE. PT. AND STAFF NURSE WERE INSTRUCTED ON PLAN OF CARE.
--- NOTE | 2018-10-10 15:26 | NUR ---
OSTOMY FOLLOW UP: PT. OSTOMY APPLIANCE WAS CHANGED TODAY. PT. WAS NOTED TO HAVE A SMALL AMOUNT OF EXCORATION AROUND HIS STOMA DUE TO THE HIGH AMOUNT OF LIQUID OUTPUT. PT. WAS CHANGED FROM A HIGH OUTPUT POUCH TODAY TO A TRADITIONAL POUCH. PT. TOLERATED WELL.
--- NOTE | 2018-10-10 18:50 | NUR ---
DC planning efforts today in anticipation of dc to home with hh and TPN tomorrow. Case discussed with the care team. The pt does not have a current PCP. Dr. Harvey has agreed to follow. Referral information faxed to [facility] for the home TPN setup and [facility] for the nursing and therapy followup. [facility] has met with the pt this am at bedside and talked with his mother several times this afternoon. They will bring his TPN here to his room and hook him up if cleared for dc in the am. Orders faxed(no changes in his tpn orders). They will need a confirmation call in the am to establish a delievery time. [facility] will see the pt for start of care on Saturday. He will have labs and dressing change to his abdominal incision on Saturday. The pt's mother also indicated that he [place] per spend [place] as a secondary coverage. Pt's mother to provide a credit card or bank acct for [facility] to confirm delievery. This is per their [place] policy to deliever. Pt's mom is aware that the pt has a $4400 oop max and has likely met that. He also will likely have met his medicaid spenddown for secondary coverage. [facility] also provided her with info on their jeet program if needed. Pt's mother updated. She will be here in the am to talk with the attending. She will need a script/ doctor note that he is homebound for his methadone clnic. Pt noted to need a rwalker as well. Facesheet faxed to [facility] [place]. They will need a script faxed to them to setup delievery. Weekend nurse to confirm dc with the attending and fax dc summary and instructions to [facility] and [facility] and notify their oncall staff. Script for a rwalker to be faxed to [facility] [place] at [phone] and phone [phone]. [facility]: [phone], fax [phone], [facility] : [phone], fax [phone].
--- NOTE | 2018-10-11 01:42 | NUR ---
ASSESSMENTS CHARTED. PT UP IN CHAIR DURING SHIFT. PT DID HIS OWN ILEOSTOMY CARE. DRAINS WILL BE MEASURED AT END OF SHIFT. PATIENT IS PLANNING ON GOING HOME WITH HOME HEALTH IN THE MORNING.
[2018-10-11 04:19] VITALS: BP 121/77
[2018-10-11 04:55] LABS: ALBUMIN 1.1 g/dL (3.4-5.0); CALCIUM 8.4 mg/dL (8.5-10.1); CREATININE 2.7 mg/dL (0.7-1.3); PHOSPHORUS 4.7 mg/dL (2.5-4.9); POTASSIUM 4.7 mmol/L (3.5-5.1)
[2018-10-11 07:00] VITALS: BP 125/79
[2018-10-11] MEDS ORDERED: PROTONIX40 M1 PO (08:42)
[2018-10-11] MEDS ORDERED: METHADONE HCL 110 MG PO (08:42)
[2018-10-11] MEDS ORDERED: LINEZOLID600 MG PO (08:42)
[2018-10-11] MEDS ORDERED: OXYCODONE HCL10 MG PO (08:42)
[2018-10-11 12:25] VITALS: BP 129/81
--- NOTE | 2018-10-11 13:20 | NUR ---
SPOKE WITH GEN ELEONORA [facility] REGARDING PT'S STACY DRAIN. INSTRUCTED TO DC STACY DRAIN R/T DECREASE SEROUS FLUID BEING COLLECTED AND PT DISCHARGE.
[2018-10-11 16:14] VITALS: BP 121/68
[2018-10-11 17:27] VITALS: BP 121/68
== END 2018-10-11 17:25 | disposition home health service (06) | DRG 853 ==
LOC: ER 18:47 → 2N 21:41 → ICU 21:41 → EROBS 21:41 → ICU 22:54 → 2N 09-23 12:56 → ENTRNSPT 09-24 15:53 → DELTRNSPT 09-25 13:46 → 2N 10-11 17:25
PROVIDERS: Emergency Medicine; Hospitalist; Internal Medicine; Nurse Practitioner Acute Care; Radiology Vascular & Interventional Radiology; Surgery; ADMIT Hospitalist
PROC: 0D9670Z Drainage of Stomach with Drainage Device, Via Natural or Artificial Opening (ICD-10-PCS; 2018-09-21)
PROC: 3E0336Z Introduction of Nutritional Substance into Peripheral Vein, Percutaneous Approach (ICD-10-PCS; principal; 2018-09-22)
PROC: 02HV33Z Insertion of Infusion Device into Superior Vena Cava, Percutaneous Approach (ICD-10-PCS; 2018-09-22)
PROC: 0D1B0Z4 Bypass Ileum to Cutaneous, Open Approach (ICD-10-PCS; 2018-09-22)
PROC: 30233N1 Transfusion of Nonautologous Red Blood Cells into Peripheral Vein, Percutaneous Approach (ICD-10-PCS; 2018-09-28)
DX: A41.9 Sepsis, unspecified organism (principal); K63.1 Perforation of intestine (nontraumatic); E43 Unspecified severe protein-calorie malnutrition; K65.1 Peritoneal abscess; K50.90 Crohn's disease, unspecified, without complications; E87.1 Hypo-osmolality and hyponatremia; N17.9 Acute kidney failure, unspecified; J93.9 Pneumothorax, unspecified; F11.20 Opioid dependence, uncomplicated; D62 Acute posthemorrhagic anemia; I47.1 Supraventricular tachycardia; E87.5 Hyperkalemia; E16.2 Hypoglycemia, unspecified; G89.29 Other chronic pain; D63.8 Anemia in other chronic diseases classified elsewhere; B95.62 Methicillin resistant Staphylococcus aureus infection as the cause of diseases classified elsewhere; F32.9 Major depressive disorder, single episode, unspecified; F17.210 Nicotine dependence, cigarettes, uncomplicated; E86.0 Dehydration; I80.9 Phlebitis and thrombophlebitis of unspecified site; B96.1 Klebsiella pneumoniae [K. pneumoniae] as the cause of diseases classified elsewhere; B95.2 Enterococcus as the cause of diseases classified elsewhere; D47.3 Essential (hemorrhagic) thrombocythemia; Z91.041 Radiographic dye allergy status; Z68.22 Body mass index [BMI] 22.0-22.9, adult; Z90.49 Acquired absence of other specified parts of digestive tract; Z93.2 Ileostomy status; Z71.6 Tobacco abuse counseling; Z79.899 Other long term (current) drug therapy
CPT/HCPCS: 10078; 10081; 27000; 50093; 50101; 50331; 50386; 50455; 51712; 56525; 56527; 56530; 57092; 62110; 62900; 70005

== ENCOUNTER 2018-10-15 20:06 | Emergency (ER) | payer OTHER ==
[~2018-10-15] VITALS: Ht 180.3 cm; Wt 54.4 kg
[~2018-10-15 20:06] MED LIST changes: +LINEZOLID600 MG PO; +METHADONE HCL 110 MG PO; +OXYCODONE HCL10 MG PO; +PROTONIX40 M1 PO
[2018-10-15 22:55] LABS: MCH 26.2 pg (26.0-34.0)
[2018-10-15 22:56] LABS: MCHC 32.9 g/dL (28.0-37.0); MCV 79.5 fL (80.0-100.0); PLATELET COUNT 422 thou/uL (150-400); RBC 2.46 mil/uL (4.50-6.00); RDW 16.3 % (10.5-14.5); WBC 7.3 thou/uL (4.0-11.0)
[2018-10-15 23:03] LABS: CALCIUM 8.4 mg/dL (8.5-10.1); CREATININE 2.3 mg/dL (0.7-1.3); POTASSIUM 3.8 mmol/L (3.5-5.1)
[2018-10-15 23:10] LABS: ALBUMIN 1.4 g/dL (3.4-5.0); TOTAL BILIRUBIN 0.2 mg/dL (<0.1-1.0)
[2018-10-15 23:14] LABS: HEMATOCRIT 19.5 % (42.0-52.0); HEMOGLOBIN 6.4 gm/dL (14.0-18.0)
[2018-10-15 23:38] LABS: ABSOLUTE NEUTROPHILS 6.1 thou/uL (1.4-8.2); ANISOCYTOSIS 1+
[2018-10-15 23:41] LABS: LARGE PLATELETS OCCASIONAL
[2018-10-16 00:21] VITALS: BP 124/66; BP 128/69; BP 132/70; BP 136/73
[2018-10-16 02:57] VITALS: BP 135/70
== END 2018-10-16 03:00 | disposition home or self-care (01) ==
LOC: ER 20:06
PROVIDERS: Physician Assistant
DX: D64.9 Anemia, unspecified (principal); F17.210 Nicotine dependence, cigarettes, uncomplicated; F32.9 Major depressive disorder, single episode, unspecified; G89.29 Other chronic pain; K21.9 Gastro-esophageal reflux disease without esophagitis; K50.90 Crohn's disease, unspecified, without complications; Z90.49 Acquired absence of other specified parts of digestive tract; Z91.041 Radiographic dye allergy status